=== PATIENT | female | born 1960 | race Caucasian/White ===

== ENCOUNTER 2020-01-17 13:04 | Emergency (ER) | payer MEDICARE, BC, SELFPAY ==
--- NOTE | ~2020-01-17 | CT_ITS ---
EXAMINATION: CTA chest PE protocol DATE: 01/17/2020 17:17 INDICATION: Chest pain. Shortness of breath. TECHNIQUE: Computed tomography (CT) pulmonary angiogram of the chest was performed with 100 mL Omnipa que-350 intravenous contrast. Additional 3D reconstructions utilizing coronal maximum intensity proje ction (MIP) were performed. Automated exposure control and iterative reconstruction technique were em ployed. The dose-length product was 730.22 mGy-cm. COMPARISON: 06/11/2019 FINDINGS: Good contrast opacification of the pulmonary arteries. There is mild streak artifact from dense contr ast in the superior vena cava and right atrium. Mild scattered respiratory motion artifact only mildl y decreases sensitivity in some of the smaller subsegmental pulmonary arteries. No pulmonary embolism . Chronic pleural-parenchymal scarring at the periphery of the left lower lobe and anterior left uppe r lobe/lingula. Additional new mild dependent atelectasis in the right lower lobe. No pneumonia, pulm onary edema, pleural effusion or pneumothorax. Heart size is normal. Atherosclerotic coronary artery calcifications changes of interval median sternotomy and coronary artery bypass grafting. Aortic valv e calcification. Thoracic aorta is normal in caliber with extensive atherosclerotic disease but no di ssection. Likely reactive mild anterior mediastinal lymphadenopathy. Retained epicardial pacemaker le ads. Infrarenal IVC filter. Mild thoracic spondylosis. Chronic appearing L3 central superior endplate compression fracture. IMPRESSION: 1. No pulmonary embolism. 2. Severe coronary artery disease with changes of interval median sternotomy and coronary artery bypa ss grafting. 3. Chronic atelectasis/scarring left lower lobe and at the junction of the left upper lobe and lingul a with new mild dependent atelectasis in the right lower lobe. 4. Mild likely reactive anterior mediastinal lymphadenopathy 5. IVC filter. Reviewed, dictated and finalized at location A. VERY STOCK CLERK IMPRESSION: 1. No pulmonary embolism. 2. Severe coronary artery disease with changes of interval median sternotomy an d coronary artery bypass grafting. 3. Chronic atelectasis/scarring left lower lobe and at the junction of the left upper lobe and lingula with new mild dependent atelectasis in the right lower lobe. 4. Mild likely reactive anterior mediastinal lymphadenopathy 5. IVC filter.
--- NOTE | ~2020-01-17 | XR_ITS ---
EXAMINATION: XR chest 2V DATE: 01/17/2020 14:19 INDICATION: Chest pain TECHNIQUE: AP and lateral views of the chest are obtained. COMPARISON: 11/19/2019 FINDINGS: The lungs are free of acute opacities. There is no pleural effusion or pneumothorax. There is chronic blunting of the left costophrenic angle. The heart size is normal. There are changes of pr ior cardiac surgery. There is mild thoracic spondylosis. IMPRESSION: 1. No acute cardiopulmonary abnormality. Reviewed, dictated and finalized at location A. RVISOR FACEPIECE LINE
[2020-01-17 13:24] VITALS: BP 111/54; PULSE 68; RESP 19; TEMP 36.6; O2SAT 100
--- NOTE | 2020-01-17 13:28 | ECG_ITS ---
Measurements Intervals [place] Rate: 64 P: 32 CT: 143 QRS: -3 QRSD: 68 T: 124 QT: 420 QTc: 434 Interpretive Statements SINUS RHYTHM LEFT VENTRICULAR HYPERTROPHY AND ST-T CHANGE BORDERLINE ST-T WAVE ABNORMALITY- INF/LAT LEADS BASELINE ARTIFACT- I, II, AVR BORDERLINE ECG Electronically Signed On 01-17-2020 13:51:25 STITCH CLEANER by Bebeto Cordoba D.O.
[2020-01-17 13:48] LABS: Basophils Absolute Auto 0.1 K/mm3 (0.0-0.1); Basophils Percent Auto 0.7 % (0.2-1.2); Eosinophils Absolute Auto 0.3 K/mm3 (0-0.3); Eosinophils Percent Auto 3.2 % (0-4.4); Hematocrit 40.7 % (37.0-47.0); Hemoglobin 13.3 g/dL (12.0-15.0); Immature Granulocyte Absolute 0.03 K/mm3 (0.00-0.031); Immature Granulocyte Percent A 0.3 % (0-0.5); Lymphocytes Absolute Auto 1.23 K/mm3 (0.9-3.2); Lymphocytes Percent Auto 12.4 % (18.3-44.2); Mean Corpuscular HGB Conc 32.7 g/dl (32-36); Mean Corpuscular Hemoglobin 29.6 pg (26-34); Mean Corpuscular Volume 90.4 fl (80-100); Mean Platelet Volume 9.9 fl (7.4-10.4); Monocytes Absolute Auto 0.7 K/mm3 (0.1-0.6); Monocytes Percent Auto 6.6 % (2.6-8.5); Neutrophils Absolute Auto 7.6 K/mm3 (1.3-6.7); Neutrophils Percent Auto 76.8 % (45.5-73.1); Platelet Count Result 357 k/mm3 (150-375); Red Cell Distribution Width 13.7 % (11.5-14.5); White Blood Count 9.9 K/mm3 (4.5-10.0)
[2020-01-17 13:52] LABS: INR 1.2; Prothrombin Time 14.5 Seconds (11.1-14.7)
[2020-01-17 13:53] LABS: Partial Thromboplastin Time 28.1 SECONDS (22.3-36.8)
[2020-01-17 13:54] LABS: Blood Urea Nitrogen 8 mg/dL (7-17); Carbon Dioxide 23 mmol/L (22-30); Chloride 98 mmol/L (98-107); Estimated Glomerular Filt Rate > 60; Glucose 189 mg/dL (65-105); Potassium 4.3 mmol/L (3.4-5.0); Sodium 135 mmol/L (137-145)
[2020-01-17 14:06] LABS: Troponin I < 0.012 ng/mL (0.000-0.034)
--- NOTE | 2020-01-17 14:36 | ED.GENADULT ---
HPI - General Adult General Chief complaint: Unspecified Stated complaint: Pain to R breast area Time Seen by Provider: 01/17/20 13:57 Source: patient Mode of arrival: EMS Limitations: no limitations History of Present Illness HPI narrative: Pt is a 59 y/o female who presents to the ED with c/o pain under her rt breast that started 3 days ago. Pt states that she is wheelchair bound and she thinks she pulled a muscle when she was being transported from her wheelchair to bed. Her pain is aggravated when she moves or takes a deep breath. Pt had a CABG done on August 2019 and she had an open wound on her chest and follows up at [facility]. She is supposed to see her surgeon for a skin graft next week. She denies ay new drainage or erythema to her wound site. Pt denies cough, rhinorrhea, sore throat, hemoptysis, rash, or swelling. Pt takes Oxycodone TID and it has not been helping her pain. She has a H/o a blood clot but denies being on any blood thinners. MD complaint: Pain under breast Onset (ago): day(s) (3) Location: chest and right Pain Consistency: constant Relieving factors: none Exacerbating factors: movement and other (deep breath) Associated symptoms: denies other symptoms Related Data Home Medications Medication Instructions Recorded Confirmed albuterol sulfate [ProAir HFA] 2 puff INHALATION QID 11/19/19 aspirin DAILY 11/19/19 atorvastatin DAILY 11/19/19 carvedilol BID 11/19/19 clopidogrel DAILY 11/19/19 furosemide DAILY 11/19/19 gabapentin TID 11/19/19 glipizide mg 11/19/19 melatonin 10 mg PO HS PRN 11/19/19 oxycodone-acetaminophen HS 11/19/19 paroxetine HCl mg PO 11/19/19 sacubitril-valsartan 1 tablet PO BID 11/19/19 Allergies Allergy/AdvReac Type Severity Reaction Status Date / Time adhesive tape Allergy Mild Rash Verified 11/19/19 11:05 amoxicillin AdvReac Intermediate Nausea and Verified 11/19/19 11:47 Vomiting cephalexin AdvReac Mild YEAST Verified 11/19/19 11:05 INFECTION codeine AdvReac Mild Nausea Verified 11/19/19 11:05 Review of Systems Review of Systems: All systems reviewed & are unremarkable except as noted in HPI and below ENT: Denies sore throat and Denies other (rhinorrhea, hemoptysis) Respiratory: Respiratory: Denies cough and Reports other (pain under rt breast) Musculoskeletal: Musculoskeletal: Denies other (swelling) Integumentary/Breasts: Skin/Breast: Denies rash PMFSH Past Medical History Medical History (Updated 01/17/20 @ 18:59 by Christopher Kaur MD) Acute kidney failure Arthritis Bronchitis CAD (coronary artery disease) CHF (congestive heart failure) COPD (chronic obstructive pulmonary disease) Diabetes mellitus Diverticulitis DVT (deep venous thrombosis) Hiatal hernia HTN (hypertension) Hx of lower limb amputation Kidney stones Myocardial infarction Pneumonia Pulmonary embolism TIA (transient ischemic attack) Surgical History Surgical History (Updated 01/17/20 @ 15:11 by Janae Ann) H/O section H/O heart artery stent H/O tubal ligation History of above-knee amputation of both lower extremities History of cardiac catheterization History of coronary artery bypass graft Hx of tonsillectomy Social History Social History Smoking status: Current every day smoker Gender identity (if verbalized by the patient): Female Exam Narrative: Exam Narrative: GENERAL: Well-appearing, well-nourished, and in no acute distress. HEAD: Normocephalic, atraumatic. ENT: Mucous membranes moist. CHEST: Clear to auscultation. No respiratory distress. Tender to palpation anterior chest wall right side beneath the breast. HEART: Regular rate and rhythm. Normal peripheral pulses. ABDOMEN: Soft, nontender, nondistended. EXTREMITIES: Normal range of motion. Bilateral lower extremity AKA. NEURO: Alert and oriented x3. PSYCH: Normal mood and affect. Course Vital Signs Vital signs
[2020-01-17 15:30] VITALS: BP 132/84; PULSE 64; RESP 16; O2SAT 97
[2020-01-17 16:17] LABS: D Dimer 1.57 ug/mL (<0.48)
[2020-01-17 16:32] VITALS: BP 123/52; PULSE 62; RESP 18; O2SAT 98
[2020-01-17 16:34] VITALS: PULSE 63
[2020-01-17 16:54] LABS: Troponin I < 0.012 ng/mL (0.000-0.034)
[2020-01-17] MEDS: ONDANSETRON INJ 4 MG/2 ML VIAL IV PUSH (17:44)
[2020-01-17 18:05] VITALS: BP 142/56; PULSE 71; RESP 16; O2SAT 97
[2020-01-17 19:23] VITALS: BP 128/84; PULSE 68; RESP 16; O2SAT 98
== END 2020-01-17 19:24 | disposition home or self-care (01) ==
PROVIDERS: Emergency Provider Emergency Medicine; PCP Family Medicine
DX: R07.89 Other chest pain (principal); I25.10 Atherosclerotic heart disease of native coronary artery without angina pectoris; I50.9 Heart failure, unspecified; J44.9 Chronic obstructive pulmonary disease, unspecified; E11.9 Type 2 diabetes mellitus without complications; Z86.718 Personal history of other venous thrombosis and embolism; Z87.442 Personal history of urinary calculi; M19.90 Unspecified osteoarthritis, unspecified site; Z86.711 Personal history of pulmonary embolism; Z86.73 Personal history of transient ischemic attack (TIA), and cerebral infarction without residual deficits; Z95.5 Presence of coronary angioplasty implant and graft; Z89.611 Acquired absence of right leg above knee; Z89.612 Acquired absence of left leg above knee; Z95.1 Presence of aortocoronary bypass graft; F17.200 Nicotine dependence, unspecified, uncomplicated; I11.0 Hypertensive heart disease with heart failure; Z79.82 Long term (current) use of aspirin; Z79.84 Long term (current) use of oral hypoglycemic drugs; R94.31 Abnormal electrocardiogram [ECG] [EKG]
CPT/HCPCS: 36415; 71046; 71275; 80048; 84484; 85025; 85380; 85610; 85730; 93005; 96374; 99284; J2405; Q9967

== ENCOUNTER 2021-05-15 08:51 | Emergency (ER) | payer MEDICARE, MEDICAID, SELFPAY ==
[2021-05-15] VITALS (12 sets, daily range): BP systolic 141–162; BP diastolic 70–92; PULSE 88–114; RESP 10–18; TEMP 36.7; O2SAT 95–97
--- NOTE | 2021-05-15 08:58 | ECG_ITS ---
Measurements Intervals [place] Rate: 107 P: 60 AR: 124 QRS: 46 QRSD: 73 T: 180 QT: 345 QTc: 461 Interpretive Statements SINUS TACHYCARDIA MINIMAL Q WAVES- INFERIOR LEADS BORDERLINE ST-T WAVE ABNORMALITY- DIFFUSE LEADS BASELINE ARTIFACT- II, III, AVF, V3-V6 ABNORMAL ECG Electronically Signed On 05-15-2021 9:20:51 CDT by Bebeto Cordoba D.O.
[2021-05-15 09:13] LABS: Basophils Absolute Auto 0.1 K/mm3 (0.0-0.1); Basophils Percent Auto 0.7 % (0.2-1.2); Eosinophils Absolute Auto 0.4 K/mm3 (0-0.3); Eosinophils Percent Auto 3.6 % (0-4.4); Hematocrit 43.6 % (37.0-47.0); Hemoglobin 14.3 g/dL (12.0-15.0); Immature Granulocyte Absolute 0.03 K/mm3 (0.00-0.031); Immature Granulocyte Percent A 0.3 % (0-0.5); Lymphocytes Absolute Auto 2.52 K/mm3 (0.9-3.2); Lymphocytes Percent Auto 24.2 % (18.3-44.2); Mean Corpuscular HGB Conc 32.8 g/dl (32-36); Mean Corpuscular Hemoglobin 30.6 pg (26-34); Mean Corpuscular Volume 93.4 fl (80-100); Monocytes Absolute Auto 0.7 K/mm3 (0.1-0.6); Monocytes Percent Auto 6.5 % (2.6-8.5); Neutrophils Absolute Auto 6.8 K/mm3 (1.3-6.7); Neutrophils Percent Auto 64.7 % (45.5-73.1); Platelet Count Result 247 k/mm3 (150-375); Red Blood Count 4.67 M/mm3 (4.2-5.4); Red Cell Distribution Width 14.2 % (11.5-14.5); White Blood Count 10.4 K/mm3 (4.5-10.0)
[2021-05-15 09:29] LABS: Alanine Aminotransferase 13 U/L (4-35); Albumin Level 4.1 g/dL (3.5-5.1); Alkaline Phosphatase 81 U/L (38-126); Anion Gap 7 mmol/L (8-16); Aspartate Amino Transferase 28 U/L (14-36); Bilirubin,Total 0.6 mg/dL (0.2-1.3); Blood Urea Nitrogen 10 mg/dL (7-17); Calcium 9.1 mg/dL (8.4-10.2); Carbon Dioxide 25 mmol/L (22-30); Chloride 106 mmol/L (98-107); Estimated Glomerular Filt Rate > 60; Glucose 270 mg/dL (65-105); Potassium 4.2 mmol/L (3.4-5.0); Sodium 138 mmol/L (137-145)
--- NOTE | 2021-05-15 09:57 | ED.GENADULT ---
HPI - General Adult General Chief complaint: Recheck/Abnormal Lab/Rx Stated complaint: Potassium is high/ PCP told to come in Time Seen by Provider: 05/15/21 09:57 Source: patient and family Mode of arrival: ambulatory Limitations: no limitations History of Present Illness HPI narrative: Patient is 60 years old white female had regular blood work-up yesterday for regular checkup. Patient is asymptomatic. Today had a phone call that her potassium level is critically high and need to go to the emergency room as soon as possible. Patient still asymptomatic. Patient is not on any potassium supplement Related Data Home Medications Medication Instructions Recorded Confirmed albuterol sulfate [ProAir HFA] 2 puff INHALATION QID 11/19/19 aspirin DAILY 11/19/19 atorvastatin DAILY 11/19/19 clopidogrel DAILY 11/19/19 glipizide mg 11/19/19 melatonin 10 mg PO HS PRN 11/19/19 oxycodone-acetaminophen HS 11/19/19 cholecalciferol (vitamin D3) 25 mcg PO DAILY 05/15/21 [Vitamin D3] gabapentin 900 mg PO BID 05/15/21 metformin 500 mg PO BID 05/15/21 oxycodone 05/15/21 sacubitril-valsartan [Entresto] 05/15/21 zolpidem 5 mg PO HS PRN 05/15/21 Allergies Allergy/AdvReac Type Severity Reaction Status Date / Time adhesive tape Allergy Mild Rash Verified 05/15/21 09:02 amoxicillin AdvReac Intermediate Nausea and Verified 05/15/21 09:02 Vomiting cephalexin AdvReac Mild YEAST Verified 05/15/21 09:02 INFECTION codeine AdvReac Mild Nausea Verified 05/15/21 09:02 Review of Systems Review of Systems: Narrative: CONSTITUTIONAL: Denies fever, chills, or sweats. EYES: Denies visual changes, redness, or discharge. ENT: Denies rhinorrhea, congestion, sore throat, or otalgia. CARDIOVASCULAR: Denies chest pain, palpitations, or edema. RESPIRATORY: Denies cough or dyspnea. GASTROINTESTINAL: Denies abdominal pain, nausea, vomiting, or diarrhea. GENITOURINARY: Denies dysuria or hematuria. SKIN: Denies rash or itching. MUSCULOSKELETAL: Denies back pain, joint pain, or myalgia. NEUROLOGIC: Denies headache, numbness, or weakness. PSYCHIATRIC: Denies anxiety or depression. [facility] Past Medical History Medical History Acute kidney failure Arthritis Bronchitis CAD (coronary artery disease) CHF (congestive heart failure) COPD (chronic obstructive pulmonary disease) Diabetes mellitus Diverticulitis DVT (deep venous thrombosis) Hiatal hernia HTN (hypertension) Hx of lower limb amputation Kidney stones Myocardial infarction Pneumonia Pulmonary embolism TIA (transient ischemic attack) Surgical History Surgical History H/O section H/O heart artery stent H/O tubal ligation History of above-knee amputation of both lower extremities History of cardiac catheterization History of coronary artery bypass graft Hx of tonsillectomy Social History Social History Smoking status: Current every day smoker Gender identity (if verbalized by the patient): Female Exam Narrative: Exam Narrative: General appearance: Well-developed, well-nourished Chest and respiratory: Airway patent, no respiratory distress, no accessory muscle use Heart: Regular rate/rhythm Abdomen: Soft, nontender, no organomegaly, quiet bowel sounds Vascular: Normal peripheral pulses, normal capillary refill. Neurologic: Alert and oriented ?3, Course Course Emergency Course: Stable Vital Signs Vital signs: Vital Signs Temperature 36.7 C 05/15/21 08:57 Pulse Rate 112 H 05/15/21 08:57 Respiratory Rate 16 05/15
== END 2021-05-15 10:41 | disposition home or self-care (01) ==
PROVIDERS: Emergency Provider Emergency Medicine; PCP Family Medicine
DX: E87.5 Hyperkalemia (principal); I25.10 Atherosclerotic heart disease of native coronary artery without angina pectoris; I11.0 Hypertensive heart disease with heart failure; I50.9 Heart failure, unspecified; E11.9 Type 2 diabetes mellitus without complications; J44.9 Chronic obstructive pulmonary disease, unspecified; I25.2 Old myocardial infarction; F17.200 Nicotine dependence, unspecified, uncomplicated; Z79.82 Long term (current) use of aspirin; Z79.891 Long term (current) use of opiate analgesic; Z86.718 Personal history of other venous thrombosis and embolism
CPT/HCPCS: 36415; 80053; 85025; 93005; 99283

== ENCOUNTER 2023-01-24 08:50 | Emergency (ER) | payer MEDICARE, MEDICAID, SELFPAY ==
[2023-01-24] VITALS (14 sets, daily range): BP systolic 116–140; BP diastolic 57–64; PULSE 68; RESP 18; TEMP 36.7; O2SAT 96–100
--- NOTE | ~2023-01-24 | XR_ITS ---
EXAMINATION: XR femur RT min 2V DATE: 01/24/2023 10:00 INDICATION: Right thigh wound. TECHNIQUE: 2 views of the right femur were obtained. COMPARISON: None. FINDINGS: There are changes of above knee amputation. The bone margin of the stump is normal. Osteope joseph is noted. There is mild right hip osteoarthritis. There is a vascular stent in the thigh. IMPRESSION: 1. No evidence of osteomyelitis. Reviewed, dictated and finalized at location D. OR PENCIL ASSEMBLY MACHINE OPERATOR
--- NOTE | ~2023-01-24 | CT_ITS ---
EXAMINATION: CTA pelvis DATE: 01/24/2023 14:47 INDICATION: Right thigh wound. TECHNIQUE: Computed tomographic angiography (CTA) of the pelvis was performed with 100 mL Omnipaque-3 50 intravenous contrast. Automated exposure control and iterative reconstruction technique were emplo yed. The dose-length product was 220.48 mGy-cm. Maximum intensity projection 3D-reconstructions of th e aorta and other arteries were constructed by the technologist on a separate workstation. COMPARISON: CT abdomen and pelvis 10/20/2018 FINDINGS: There are no dilated loops of bowel. There are no pathologically enlarged lymph nodes. Ther e is no free intraperitoneal fluid. There are changes of bilateral above-knee amputations. There is e xposed bone at the right femoral stump. There is diffuse osteopenia. There is mild lumbar spondylosis . There is mild osteoarthritis of the hips. There is sclerosis of the superior femoral heads, likely osteonecrosis. There is mild stenosis of abdominal aorta and right common iliac artery. There is mode rate stenosis of right internal iliac artery. There is mild stenosis of right external iliac artery. There is total occlusion of proximal right superficial femoral artery with reconstitution and severe stenosis. There is an occluded stent in right superficial femoral artery. There is mild stenosis of r ight profunda femoris. There is mild stenosis of left common iliac artery and moderate stenosis of le ft internal iliac artery. There is mild stenosis of left external iliac artery and moderate stenosis of left common femoral artery. There is severe stenosis of proximal left superficial femoral artery. There is total occlusion of 2 stents in left superficial femoral artery. There is mild stenosis of le ft profunda femoris. IMPRESSION: 1. Bilateral above-knee amputations with exposed bone at the right femoral stump. No bone erosions to suggest osteoarthritis. 2. Arterial occlusive disease. Reviewed, dictated and finalized at location A. KER DRIVER IMPRESSION: 1. Bilateral above-knee amputations with exposed bone at the right femoral stum p. No bone erosions to suggest osteoarthritis. 2. Arterial occlusive disease.
--- NOTE | 2023-01-24 09:36 | ED.WOUNDLAC ---
HPI - Wound/Laceration General Chief Complaint: Wound/Laceration Stated Complaint: leg infection Time Seen by Provider: 01/24/23 09:12 Source: patient and RN notes reviewed Mode of arrival: EMS Limitations: no limitations History of Present Illness HPI narrative: This is a 62-year-old female that presents to the emergency department for an open sore to her right leg. Reports bilateral krggm-fwb-wzez amputations. Her right AKA a the end of the stump has been painful over the last several months. Just yesterday a wound to the end of the stump opened up. Reports a small open wound with some drainage which prompted her to be seen. Her amputations were done at [facility] by Dr. Juanito Merino. Denies fevers or redness. Related Data Home Medications Medication Instructions Recorded Confirmed albuterol sulfate 90 mcg/actuation 2 puff inhalation QID 11/19/19 aerosol inhaler (ProAir HFA) aspirin 81 mg chewable tablet DAILY 11/19/19 atorvastatin 20 mg tablet DAILY 11/19/19 clopidogrel 75 mg tablet DAILY 11/19/19 glipizide 5 mg tablet mg 11/19/19 melatonin 10 mg capsule 10 mg PO HS PRN Insomnia 11/19/19 oxycodone-acetaminophen 5 mg-325 HS 11/19/19 mg tablet cholecalciferol (vitamin D3) 25 25 mcg PO DAILY 05/15/21 mcg (1,000 unit) chewable tablet (Vitamin D3) gabapentin 300 mg tablet 900 mg PO BID 05/15/21 metformin 500 mg tablet 500 mg PO BID 05/15/21 oxycodone 10 mg tablet 05/15/21 sacubitril 24 mg-valsartan 26 mg 05/15/21 tablet (Entresto) zolpidem 5 mg tablet 5 mg PO HS PRN Sedation 05/15/21 Allergies Allergy/AdvReac Type Severity Reaction Status Date / Time adhesive tape Allergy Mild Rash Verified 05/15/21 09:02 amoxicillin AdvReac Intermediate Nausea and Verified 05/15/21 09:02 Vomiting cephalexin AdvReac Mild YEAST Verified 05/15/21 09:02 INFECTION codeine AdvReac Mild Nausea Verified 05/15/21 09:02 Review of Systems Review of Systems: CONSTITUTIONAL: Denies fever SKIN: Denies redness or warmth NEUROLOGIC: Denies numbness All systems reviewed & are unremarkable except as noted in HPI and below PMFSH Past Medical History Medical History Acute kidney failure Arthritis Bronchitis CAD (coronary artery disease) CHF (congestive heart failure) COPD (chronic obstructive pulmonary disease) Diabetes mellitus Diverticulitis DVT (deep venous thrombosis) Hiatal hernia HTN (hypertension) Hx of lower limb amputation Kidney stones Myocardial infarction Pneumonia Pulmonary embolism TIA (transient ischemic attack) Surgical History Surgical History H/O section H/O heart artery stent H/O tubal ligation History of above-knee amputation of both lower extremities History of cardiac catheterization History of coronary artery bypass graft Hx of tonsillectomy Social History Social History Smoking status: Current every day smoker Gender identity (if verbalized by the patient): Female Exam Narrative: GENERAL: Well-appearing, well-nourished, and in no acute distress. HEAD: Normocephalic, atraumatic. EYES: EOMI. CHEST: Clear to auscultation. No respiratory distress. No wheezes rales or rhonchi HEART: Regular rate and rhythm. No murmur heard. Normal peripheral pulses. ABDOMEN: Soft, nontender, nondistended, normal active bowel sounds. EXTREMITIES: Bilateral AKA. Right stump with 1.5cm circular open area with mild surrounding redness. No overt erythema or warmth. Mild serous drainage. No lymphangitic streaking. No fluctuance SKIN: Warm, dry, no rash. NEURO: No focal deficits. Alert and oriented x3. PSYCH: Normal mood and affect Course Course Emergency Course: Patient updated on work-up and agrees with plan of care Consultations Consultation #1: I spoke with BROOKLYNN at Dr. White's office, vascular surgery at [facility] who is on
[2023-01-24 09:50] LABS: Basophils Absolute Auto 0.1 K/mm3 (0.0-0.1); Basophils Percent Auto 0.7 % (0.2-1.2); Eosinophils Absolute Auto 0.3 K/mm3 (0-0.3); Eosinophils Percent Auto 2.5 % (0-4.4); Hemoglobin 14.1 g/dL (12.0-15.0); Immature Granulocyte Absolute 0.04 K/mm3 (0.00-0.031); Immature Granulocyte Percent A 0.4 % (0-0.5); Lymphocytes Percent Auto 27.7 % (18.3-44.2); Mean Corpuscular HGB Conc 32.8 g/dl (32-36); Mean Corpuscular Hemoglobin 31.1 pg (26-34); Mean Corpuscular Volume 94.9 fl (80-100); Monocytes Absolute Auto 0.7 K/mm3 (0.1-0.6); Neutrophils Percent Auto 62.7 % (45.5-73.1); Platelet Count Result 278 k/mm3 (150-375); Red Blood Count 4.53 M/mm3 (4.2-5.4); Red Cell Distribution Width 14.2 % (11.5-14.5); White Blood Count 11.2 K/mm3 (4.5-10.0)
[2023-01-24] MEDS: oxyCODONE HCL (*CRX) 5 MG TAB IR PO (10:09)
[2023-01-24 10:22] LABS: Anion Gap 4 mmol/L (8-16); Blood Urea Nitrogen 15 mg/dL (7-17); CRP 0.5 mg/dL (<1.0); Calcium 8.5 mg/dL (8.4-10.2); Carbon Dioxide 28 mmol/L (22-30); Chloride 107 mmol/L (98-107); Estimated Glomerular Filt Rate > 60; Glucose 94 mg/dL (65-110); Potassium 4.4 mmol/L (3.4-5.0); Sodium 139 mmol/L (137-145)
[2023-01-24 10:23] LABS: Erythrocyte Sedimentation Rate 23 mm/hr (0-20)
[2023-01-24 13:49] LABS: Glucose Point of Care 205 mg/dl (65-105)
[2023-01-24] MEDS: CLINDAMYCIN HCL 150 MG CAP 300 MG PO ×2 (13:50→19:20)
--- NOTE | 2023-01-24 17:40 | PC.NURSE ---
[facility] called to do return to pt private residence at 1608 when they arrived in ER @ 1730 [facility] stated they will have enough time to do this private residence. @ 1734 [facility] notified for Pt to be put on BLS truck list.
--- NOTE | 2023-01-24 18:30 | PC.NURSE ---
@ 1827 [facility] called for return trip private residence ETA [id number]
== END 2023-01-24 19:24 | disposition home or self-care (01) ==
PROVIDERS: Emergency Provider Physician Assistant; PCP Family Medicine
DX: S81.801A Unspecified open wound, right lower leg, initial encounter (principal); T87.89 Other complications of amputation stump; Y83.5 Amputation of limb(s) as the cause of abnormal reaction of the patient, or of later complication, without mention of misadventure at the time of the procedure; I65.23 Occlusion and stenosis of bilateral carotid arteries; E11.9 Type 2 diabetes mellitus without complications; I25.10 Atherosclerotic heart disease of native coronary artery without angina pectoris; I11.0 Hypertensive heart disease with heart failure; I50.9 Heart failure, unspecified; I25.2 Old myocardial infarction; Z86.73 Personal history of transient ischemic attack (TIA), and cerebral infarction without residual deficits; Z86.718 Personal history of other venous thrombosis and embolism; Z86.711 Personal history of pulmonary embolism; Z95.5 Presence of coronary angioplasty implant and graft; Z95.1 Presence of aortocoronary bypass graft; Z89.612 Acquired absence of left leg above knee; Z89.611 Acquired absence of right leg above knee; F17.200 Nicotine dependence, unspecified, uncomplicated; Z79.51 Long term (current) use of inhaled steroids; Z79.02 Long term (current) use of antithrombotics/antiplatelets; Z79.84 Long term (current) use of oral hypoglycemic drugs; Z79.82 Long term (current) use of aspirin; Z79.891 Long term (current) use of opiate analgesic
CPT/HCPCS: 36415; 72191; 73552; 80048; 82948; 85025; 85652; 86140; 87070; 87147; 87181; 87186; 87205; 99284; A9270

== ENCOUNTER 2023-04-06 17:55 | Emergency (ER) | payer MEDICARE, MEDICAID, SELFPAY ==
--- NOTE | ~2023-04-06 | XR_ITS ---
EXAMINATION: XR femur RT min 2V DATE: 04/06/2023 18:52 INDICATION: Pain at the proximal right femur. TECHNIQUE: AP and lateral views of the right femur were obtained. COMPARISON: CT dated 01/24/2023 FINDINGS: Again seen is a right beago-ksq-cget amputation. There is also been an xjeth-qhq-xhgu amputation at t he left leg only a small portion of which is visualized on the frontal image. Osteopenia with smooth osteotomy margin at the remaining distal right femur. On the lateral projection the anterior osteotom y margin projects within 3 mm of the surface of the overlying soft tissue itself covered with a likel y bandage. Alignment is normal. No fracture. Increased sclerosis at the right femoral head necrosis. Right hip joint space remains relatively preserved. Atherosclerotic calcific lesion along the right f emoral artery with stenting seen distally. IMPRESSION: 1. Bilateral tsoge-afh-axgz amputations. There appears be only a few millimeter of soft tissue covera ge over the anterior osteotomy margin which remains smooth with no evident osteolysis. 2. Likely osteonecrosis at the right femoral head. Reviewed, dictated and finalized at location A. IMPRESSION: 1. Bilateral zvluh-wpt-[id number] amputations. There appears be only a few millimeter of soft tissue coverage over the anterior osteotomy margin which remains dyllan h with no evident osteolysis. 2. Likely osteonecrosis at the right femoral head.
--- NOTE | 2023-04-06 18:31 | ED.EXTPRO ---
HPI - Extremity Problem General Chief complaint: Extremity Problem,Nontraumatic <Joseluis Akhtar III, DO - Last Filed: 04/06/23 18:37> Stated complaint: Right stump infection <Joseluis Akhtar III, DO - Last Filed: 04/06/23 18:37> Time Seen by Provider: 04/06/23 18:25 <Joseluis Akhtar III, DO - Last Filed: 04/06/23 18:37> History of Present Illness HPI Narrative: Pt has b/l aka and history of staph infection in right stump. Pt says she was on antibiotics recently for skin infection in right stump and it improved. Pt finished the antibiotics and was doing well until about 4 days ago and she started having pain in her femur radiating up into hip. Pt has not been febrile. Pt called PCP and advised to go to ER. <Joseluis Akhtar III, DO - Last Filed: 04/06/23 18:37> Related Data Home medications: Home Medications Medication Instructions Recorded Confirmed albuterol sulfate 90 mcg/actuation 2 puff inhalation QID 11/19/19 aerosol inhaler (ProAir HFA) aspirin 81 mg chewable tablet DAILY 11/19/19 atorvastatin 20 mg tablet DAILY 11/19/19 clopidogrel 75 mg tablet DAILY 11/19/19 glipizide 5 mg tablet mg 11/19/19 melatonin 10 mg capsule 10 mg PO HS PRN Insomnia 11/19/19 oxycodone-acetaminophen 5 mg-325 HS 11/19/19 mg tablet cholecalciferol (vitamin D3) 25 25 mcg PO DAILY 05/15/21 mcg (1,000 unit) chewable tablet (Vitamin D3) gabapentin 300 mg tablet 900 mg PO BID 05/15/21 metformin 500 mg tablet 500 mg PO BID 05/15/21 oxycodone 10 mg tablet 05/15/21 sacubitril 24 mg-valsartan 26 mg 05/15/21 tablet (Entresto) zolpidem 5 mg tablet 5 mg PO HS PRN Sedation 05/15/21 <Joseluis Akhtar III, DO - Last Filed: 04/06/23 18:37> Allergies/Adverse reactions: Allergies Allergy/AdvReac Type Severity Reaction Status Date / Time adhesive tape Allergy Mild Rash Verified 04/06/23 18:06 amoxicillin AdvReac Intermediate Nausea and Verified 04/06/23 18:06 Vomiting cephalexin AdvReac Mild YEAST Verified 04/06/23 18:06 INFECTION codeine AdvReac Mild Nausea Verified 04/06/23 18:06 <Joseluiscruz Ford Akhtar III, DO - Last Filed: 04/06/23 18:37> Review of Systems Review of Systems: All systems reviewed & are unremarkable except as noted in HPI and below <Joseluis Logan Akhtar III, DO - Last Filed: 04/06/23 18:37> PMFSH Past Medical History Medical History: Medical History Acute kidney failure Arthritis Bronchitis CAD (coronary artery disease) CHF (congestive heart failure) COPD (chronic obstructive pulmonary disease) Diabetes mellitus Diverticulitis DVT (deep venous thrombosis) Hiatal hernia HTN (hypertension) Hx of lower limb amputation Kidney stones Myocardial infarction Pneumonia Pulmonary embolism TIA (transient ischemic attack) <Joseluis Akhtar III, DO - Last Filed: 04/06/23 18:37> Surgical History Surgical History: Surgical History H/O section H/O heart artery stent H/O tubal ligation History of above-knee amputation of both lower extremities History of cardiac catheterization History of coronary artery bypass graft Hx of tonsillectomy <Joseluis Akhtar III, DO - Last Filed: 04/06/23 18:37> Social History Social History: Social History Smoking status: Current every day smoker Gender identity (if verbalized by the patient): Female <Joseluiscruz Ford Akhtar III, DO - Last Filed: 04/06/23 18:37> Exam Const: General: healthy appearing <Joseluis Logan Akhtar III, DO - Last Filed: 04/06/23 18:37> Nutritional Appearance: well nourished <Joseluis Logan Akhtar III, DO - Last Filed: 04/06/23 18:37> Orientation/consciousness: patient oriented x3 <Joseluis Logan Akhtar III, DO - Last Filed: 04/06/23 18:37> Limitations: no limitations <Joseluis Logan Akhtar III, DO - Last Filed: 04/06/23 18:37>
[2023-04-06 19:41] LABS: Basophils Absolute Auto 0.1 K/mm3 (0.0-0.1); Basophils Percent Auto 0.8 % (0.2-1.2); Eosinophils Absolute Auto 0.4 K/mm3 (0-0.3); Eosinophils Percent Auto 4.5 % (0-4.4); Hematocrit 42.4 % (37.0-47.0); Immature Granulocyte Absolute 0.02 K/mm3 (0.00-0.031); Immature Granulocyte Percent A 0.2 % (0-0.5); Lymphocytes Absolute Auto 2.65 K/mm3 (0.9-3.2); Lymphocytes Percent Auto 31.5 % (18.3-44.2); Mean Corpuscular Hemoglobin 31.7 pg (26-34); Mean Corpuscular Volume 96.1 fl (80-100); Mean Platelet Volume 10.6 fl (7.4-10.4); Monocytes Absolute Auto 0.5 K/mm3 (0.1-0.6); Monocytes Percent Auto 6.4 % (2.6-8.5); Neutrophils Absolute Auto 4.8 K/mm3 (1.3-6.7); Neutrophils Percent Auto 56.6 % (45.5-73.1); Platelet Count Result 224 k/mm3 (150-375); Red Blood Count 4.41 M/mm3 (4.2-5.4); Red Cell Distribution Width 13.8 % (11.5-14.5); White Blood Count 8.4 K/mm3 (4.5-10.0)
[2023-04-06 19:51] LABS: Prothrombin Time 13.8 Seconds (11.1-14.7)
[2023-04-06 19:52] LABS: Partial Thromboplastin Time 24.5 SECONDS (22.3-36.8)
[2023-04-06 19:54] LABS: Lactic Acid Reflex 1.1 mmol/L (0.7-2.0)
[2023-04-06 19:55] LABS: Alanine Aminotransferase 19 U/L (6-35); Albumin Level 4.1 g/dL (3.5-5.1); Alkaline Phosphatase 69 U/L (38-126); Anion Gap 7 mmol/L (8-16); Aspartate Amino Transferase 23 U/L (14-36); Bilirubin,Total 0.4 mg/dL (0.2-1.3); Blood Urea Nitrogen 18 mg/dL (7-17); CRP 0.7 mg/dL (<1.0); Calcium 8.9 mg/dL (8.4-10.2); Carbon Dioxide 27 mmol/L (22-30); Chloride 103 mmol/L (98-107); Estimated Glomerular Filt Rate > 60; Glucose 114 mg/dL (65-110); Sodium 137 mmol/L (137-145)
== END 2023-04-07 00:27 | disposition home or self-care (01) ==
PROVIDERS: Emergency Provider Emergency Medicine; PCP Family Medicine
DX: M25.551 Pain in right hip (principal); I25.10 Atherosclerotic heart disease of native coronary artery without angina pectoris; I11.0 Hypertensive heart disease with heart failure; I50.9 Heart failure, unspecified; J44.9 Chronic obstructive pulmonary disease, unspecified; E11.9 Type 2 diabetes mellitus without complications; I25.2 Old myocardial infarction; F17.200 Nicotine dependence, unspecified, uncomplicated; Z86.73 Personal history of transient ischemic attack (TIA), and cerebral infarction without residual deficits; Z89.611 Acquired absence of right leg above knee; Z89.612 Acquired absence of left leg above knee
CPT/HCPCS: 36415; 73552; 80053; 83605; 85025; 85610; 85730; 86140; 87040; 99283

== ENCOUNTER 2024-02-26 14:11 | Inpatient (IN) | payer MEDICARE, MEDICAID, SELFPAY ==
[2024-02-26] VITALS (47 sets, daily range): BP systolic 88–180; BP diastolic 50–84; PULSE 119–148; RESP 15–44; TEMP 36.5–38.5; O2SAT 83–100; BMI 14.6
--- NOTE | ~2024-02-26 | CT_ITS ---
EXAMINATION: CT brain wo con DATE: 02/29/2024 09:26 INDICATION: Altered mental status. TECHNIQUE: Computed tomography (CT) of the head was performed without intravenous contrast. The mA wa s adjusted according to patient size. Iterative reconstruction technique was employed. The dose-lengt h product was 681.00 mGy-cm. COMPARISON: Head CT 02/26/2024 FINDINGS: There are old infarcts in the cerebellum bilaterally. There is an old infarct in the right occipital lobe. There are old infarcts involving the bilateral basal ganglia and thalami. There is ol d infarct in the milagro. There are scattered areas of low attenuation in the cerebral white matter. The re is no intracranial hemorrhage, acute infarction, or abnormal intracranial mass lesion. There is ex vacuo dilatation of body of left lateral ventricle. The orbits are normal. There is mild mucosal thi ckening in sphenoid sinus. There are bilateral mastoid effusions. Endotracheal and endogastric tubes are noted. IMPRESSION: 1. Old infarcts in the brain. 2. Extensive nonspecific cerebral white matter disease, which likely represents chronic small vessel ischemic disease. Reviewed, dictated and finalized at location A.
--- NOTE | ~2024-02-26 | XR_ITS ---
EXAMINATION: XR chest 1V portable DATE: 03/03/2024 05:14 INDICATION: Respiratory failure TECHNIQUE: frontal view of the chest was obtained. COMPARISON: Chest radiograph dated 03/02/2024 FINDINGS: Endotracheal tube tip 2.9 cm above the pedro. Nasogastric tube and Dobbhoff type enteric feeding tub e both extend into the stomach are collimated beyond the inferior margin of the field of imaging. Rig ht internal jugular central venous catheter with distal tip at the superior cavoatrial junction. Epic ardial pacemaker leads project over the right and inferior sides of the heart. There has been some improvement in hazy opacities at the bilateral lung bases likely due at least in part to small bilateral pleural effusions. Additional linear bands of discoid atelectasis/scarring at the left lower lung zone. No pneumothorax. The cardiomediastinal silhouette is normal. Ostial marker s and mediastinal surgical clips suggesting prior coronary artery bypass grafting. IMPRESSION: 1. Slight improvement in small bilateral pleural effusions with associated bibasilar atelectasis, mil d pulmonary edema and/or pneumonia. Reviewed, dictated and finalized at location A. IMPRESSION: 1. Slight improvement in small bilateral pleural effusions with associated biba silar atelectasis, mild pulmonary edema and/or pneumonia.
--- NOTE | ~2024-02-26 | CT_ITS ---
EXAMINATION: CT abdomen pelvis w con DATE: 02/26/2024 19:57 INDICATION: sacral decub ulcer TECHNIQUE: Computed tomography (CT) of the abdomen and pelvis was performed with 100 mL Omnipaque-350 intravenous contrast. Automated exposure control and iterative reconstruction technique were employe d. The dose-length product was 226.48 mGy-cm. COMPARISON: 10/20/2018, report only. FINDINGS: Lower thorax: Mitral and coronary artery calcifications. Orogastric tube terminating in the stomach. Left basilar atelectasis. Liver: Normal. Biliary/Gallbladder: Cholelithiasis. No bile duct dilation. Pancreas: Moderate atrophy. Spleen: Small wedge-shaped peripheral hypodensities likely representing infarct. Adrenals:No mass. Kidneys: No suspicious mass, obstructing stone, or hydronephrosis. Excreted contrast in the collectin g systems. GI tract: Moderate distal esophageal and gastric wall edema. No small or large bowel dilation. Normal appendix. Mesentery/Peritoneum: No ascites, mass, or free air. Mild mesenteric edema. Presacral edema. Retroperitoneum: No mass. Atherosclerotic abdominal aortic and/or arterial calcifications. IVC filter . Pelvis: Contrast filled urinary bladder. Zepeda catheter in place. Normal uterus and bilateral ovaries . Soft Tissues: Moderate body wall edema. Deep sacral ulcer, extending to bone no abscess. Bones: Transverse fracture of S5, with anterior displacement of the distal aspect fragment and coccy x. Osseous erosion along the posterior sacrum and portions of the displaced sacral/coccygeal fragment . IMPRESSION: Moderate esophagitis/gastritis. Small splenic infarct. Contrast-filled bladder with a Zepeda catheter, correlate with catheter function. Transverse distal sacral fracture. Deep sacral ulcer with exposed bone and underlying sacral osteomyelitis. Mild mesenteric and moderate body wall edema. Reviewed, dictated and finalized at location K. IMPRESSION: Moderate esophagitis/gastritis. Small splenic infarct. Contrast-filled bladder with a Zepeda catheter, correlate with catheter function . Transverse distal sacral fracture. Deep sacral ulcer with exposed bone and underlying sacral osteomyelitis. Mild mesenteric and moderate body wall edema.
--- NOTE | ~2024-02-26 | XR_ITS ---
EXAMINATION: XR chest 1V portable Exam Date/Time: 02/26/2024 18:02 CDT HISTORY: central line Comparison: Same date at 5:09 PM. FINDINGS/IMPRESSION: New right IJ central line terminating in the distal SVC, in good position. Stabl e endotracheal tube, in good position. Subdiaphragmatic NG tube. No new acute cardiopulmonary finding . Reviewed, dictated and finalized at location K.
--- NOTE | ~2024-02-26 | XR_ITS ---
EXAMINATION: XR chest ET placement Exam Date/Time: 02/26/2024 17:03 CDT HISTORY: intubation Comparison: CTPA, same date. RESULT: Lines, tubes, and devices: Subdiaphragmatic NG tube. Midline and mediastinal surgical clips. Ostial markers. Abandoned pacing wires. Endotracheal tube terminates 3.8 cm above the pedro. Lungs and pleura: Lingular and left lower lobe scar. Cardiomediastinal silhouette: Stable. Other: No acute osseous or upper abdominal finding. IMPRESSION: Endotracheal tube, in good position. Reviewed, dictated and finalized at location K.
--- NOTE | ~2024-02-26 | XR_ITS ---
EXAMINATION: XR chest 1V portable DATE: 03/02/2024 05:41 INDICATION: Intubated. TECHNIQUE: A single frontal view of the chest was obtained. COMPARISON: Chest single view 03/01/2024, chest CT 02/29/2024 FINDINGS: The patient is rotated to her right. There is a diffuse interstitial pattern. There are mil d airspace opacities in the lower lung zones. There are small bilateral pleural effusions. No pneumot horax. The heart size is normal. The endotracheal tube tip is 4.1 cm above the pedro. The nasogastri c tube tip is beyond the inferior margin of the radiograph, but at least to the stomach. A right inte rnal jugular central venous catheter is seen with tip in the proximal right atrium IMPRESSION: 1. Stable mild diffuse lung disease, consistent with pulmonary edema versus pneumonia. 2. Stable small pleural effusions. Reviewed, dictated and finalized at location A. IMPRESSION: 1. Stable mild diffuse lung disease, consistent with pulmonary edema versus pne umonia. 2. Stable small pleural effusions.
--- NOTE | ~2024-02-26 | XR_ITS ---
EXAMINATION: XR chest 1V portable DATE: 02/27/2024 09:22 INDICATION: Respiratory failure. TECHNIQUE: A single frontal view of the chest was obtained. COMPARISON: Chest single view 02/27/2024 at 5:12 AM, chest CT 02/26/2024 FINDINGS: There is volume loss of left hemithorax. There are airspace opacities in left lower lobe an d lingula. There is chronic blunting of left lateral costophrenic angle. No pleural effusion or pneum othorax. The heart size is normal. Median sternotomy wires and mediastinal surgical clips are seen, l ikely from prior coronary artery bypass grafting. Retained epicardial pacer wires are noted. A right internal jugular central venous catheter is seen with tip at the superior cavoatrial junction. The en dotracheal tube tip is 4.5 cm above the pedro. The nasogastric tube tip is in the stomach. IMPRESSION: 1. Volume loss of left hemithorax with airspace opacities in left lower lobe and lingula, likely atel ectasis. Reviewed, dictated and finalized at location A. IMPRESSION: 1. Volume loss of left hemithorax with airspace opacities in left lower lobe an d lingula, likely atelectasis.
--- NOTE | ~2024-02-26 | XR_ITS ---
Portable chest x-ray Comparison: 02/29/2024 Clinical History: Tube placement Findings: Endotracheal tube, NG tube, and right-sided line are in place. NG side port is at the dist al esophagus. There is discoid atelectasis or scarring left midlung. Probable minimal left pleural ef fusion. Right lung clear. Cardiomediastinal silhouette is stable. Bones and soft tissues are unremar kable. Impression: NG tube side-port at the distal esophagus. Further advancement into the stomach advised. Other support tubes are in satisfactory position. Discoid atelectasis or scarring left midlung. Minimal left pleural effusion. Reviewed, dictated and finalized at location . Impression: NG tube side-port at the distal esophagus. Further advancement into the stomach advised. Other support tubes are in satisfactory position. Discoid atelectasis or scarring left midlung. Minimal left pleural effusion.
--- NOTE | ~2024-02-26 | XR_ITS ---
EXAM: XR abdomen gastric tube insert DATE: 02/26/2024 17:13 HISTORY: OG PLACEMENT . COMPARISON: CTPA, same date. FINDINGS: Lingular and left lower lobe scarring. Midline and mediastinal surgical clips. Abandoned e picardial pacing wires. IVC filter. NG tube, tip and side port project over the expected location of the stomach. Normal bowel gas pattern. No organomegaly. No abnormal abdominal calcification. Degenera tive change in the spine. IMPRESSION: NG tube, in good position. Reviewed, dictated and finalized at location K. IMPRESSION: NG tube, in good position.
--- NOTE | ~2024-02-26 | XR_ITS ---
Portable chest x-ray Comparison: 02/27/2024 Clinical History: Intubated Findings: Endotracheal tube, NG tube, and right IJ line are in place. Questionable minimal layering left pleural effusion. Right lung clear. Cardiomediastinal silhouette is stable. Bones and soft tiss ues are unremarkable. Impression: Support tubes, as above. Questionable minimal layering left pleural effusion. Reviewed, dictated and finalized at location . Impression: Support tubes, as above. Questionable minimal layering left pleural effusion.
--- NOTE | ~2024-02-26 | XR_ITS ---
EXAMINATION: XR fl Dobhoff insert/rad w img DATE: 03/02/2024 11:12 INDICATION: Gastroparesis. TECHNIQUE: I placed a nasoenteric tube under fluoroscopic guidance. The number of images was 1. The f luoroscopy exposure time was 1.1 minutes. COMPARISON: Chest single view 03/02/2024 FINDINGS: The nasoenteric tube tip is in the distal stomach. IMPRESSION: 1. Fluoroscopy guided nasoenteric tube placement with tip in the distal stomach. Reviewed, dictated and finalized at location A. IMPRESSION: 1. Fluoroscopy guided nasoenteric tube placement with tip in the distal stomach .
--- NOTE | ~2024-02-26 | CT_ITS ---
EXAMINATION: CT chest abdomen pelvis wo con DATE: 02/29/2024 09:26 INDICATION: Anemia. Sepsis. TECHNIQUE: Computed tomography (CT) of the chest, abdomen, and pelvis was performed without intraveno us contrast. Automated exposure control and iterative reconstruction technique were employed. The dos e-length product was 532.01 mGy-cm. COMPARISON: CT abdomen and pelvis 02/26/2024 FINDINGS: CHEST CT: There is smooth septal thickening in the lungs, consistent mild pulmonary edema. There is mild depend ent atelectasis in right lung. There are tree-in-bud opacities and centrilobular nodules and airspace opacities in left upper lobe and left lower lobe, consistent with pneumonia. There are small pleural effusions. The endotracheal tube tip is 4.8 cm above the pedro. The heart size is normal. There are coronary artery calcifications. There are changes of coronary artery bypass grafting. No pericardial effusion. There is calcified atherosclerosis of the aorta and many of the other arteries. There is a chronic compression fracture of T7. There is mild thoracic spondylosis. ABDOMEN/PELVIS CT: The liver and spleen are normal. There is contrast in the gallbladder, which is normal in size. There is a filter in the inferior vena cava. The pancreas and adrenal glands are normal. There is cartilag e thinning of the kidneys. There is are persistent contrast nephrograms, collecting system with decre ased kidney function. The bladder is decompressed by a Zepeda catheter. There is diverticulosis of the colon without evidence of diverticulitis. There are no dilated loops of bowel. The appendix is baldemar l. The nasogastric tube tip is in the stomach. There are no pathologically enlarged lymph nodes. Ther e is a small volume of ascites. There is edema of the intra-abdominal fat and body wall. There is a c hronic compression fracture of L3. There is mild lumbar spondylosis. There is a sacral decubitus ulce r with packing and erosions of bone. IMPRESSION: 1. Left-sided pneumonia. 2. Mild pulmonary edema. 3. Small pleural effusions. 4. Small volume of ascites. 5. Sacral decubitus ulcer. Erosions of the sacrum may be osteomyelitis and/or changes of debridement. Reviewed, dictated and finalized at location A. IMPRESSION: 1. Left-sided pneumonia. 2. Mild pulmonary edema. 3. Small pleural effusions. 4. Small volume of ascites. 5. Sacral decubitus ulcer. Erosions of the sacrum may be osteomyelitis and/or c hanges of debridement.
--- NOTE | ~2024-02-26 | CT_ITS ---
EXAMINATION: CT brain wo con DATE: 02/26/2024 19:57 INDICATION: AMS . TECHNIQUE: Computed tomography (CT) of the head was performed without intravenous contrast. The mA wa s adjusted according to patient size. Iterative reconstruction technique was employed. The dose-lengt h product was 832.33 mGy-cm. COMPARISON: 11/19/2019, report only. FINDINGS: No acute intracranial hemorrhage or extra-axial fluid collection. No hydrocephalus, mass, or herniation. No acute ischemic infarct. Unremarkable dural venous sinus attenuation. No acute osseous abnormality. Bilateral mastoid fluid. Left sphenoid air-fluid level. Fluid in the nasopharynx. The remaining aerat ed spaces are clear. Moderate atrophy and chronic white matter change. Atherosclerotic intracranial calcification. Focal o ld pontine, left cerebellar, right occipital, and left basal ganglia infarcts. IMPRESSION: No acute intracranial process. Left sphenoid and nasopharyngeal fluid, likely secondary to indwelling tube. Bilateral mastoid effusions. Reviewed, dictated and finalized at location K.
--- NOTE | ~2024-02-26 | CT_ITS ---
EXAMINATION: CTA chest PE protocol DATE: 02/26/2024 16:02 INDICATION: tachy, SOB TECHNIQUE: Computed tomography angiography (CTA) of the chest was performed with 85 mL Omnipaque-350 intravenous contrast timed to evaluate the pulmonary arteries. Coronal maximum intensity projection 3 D-reconstructions were created by the technologist. The dose-length product (DLP) was 166.28 mGy-cm. Automated exposure control and iterative reconstruction technique were employed. COMPARISON: 01/17/2020, report only. FINDINGS: Respiratory motion artifact. Lung parenchyma and airways: Emphysematous changes. Lingular and left lower lobe scarring. Airway shannon ris and bronchial thickening in the lingular and lower lobe bronchi. Pleura: Unremarkable. Thoracic inlet, axillae and chest wall: Status post CABG. Abandoned epicardial leads. Thoracic aorta: No significant dilation. No dissection. Moderate atherosclerotic plaque. Mediastinum: Normal. Heart and pericardium: Aortic and mitral calcifications. No pericardial effusion. Coronary artery calcifications: Moderate. Upper abdomen: Partially visualized IVC filter. Bones: Moderate height loss at T7. Pulmonary arteries: Study quality: Motion artifact limits evaluation of the subsegmental pulmonary ar teries. Otherwise, no pulmonary emboli detected. IMPRESSION: Limited evaluation of subsegmental pulmonary arteries. No CT evidence of acute central or segmental p ulmonary embolus. Lingular and left lower lobe bronchial wall thickening and bronchial debris may reflect bronchiolitis or aspiration. Moderate compression deformity at T7, may be acute or chronic, correlate for pain/tenderness. Reviewed, dictated and finalized at location K. IMPRESSION: Limited evaluation of subsegmental pulmonary arteries. No CT evidence of acute central or segmental pulmonary embolus. Lingular and left lower lobe bronchial wall thickening and bronchial debris may reflect bronchiolitis or aspiration. Moderate compression deformity at T7, may be acute or chronic, correlate for pa in/tenderness.
--- NOTE | ~2024-02-26 | XR_ITS ---
EXAMINATION: XR abdomen gastric tube rechec DATE: 03/01/2024 08:28 INDICATION: Nasogastric tube adjustment. TECHNIQUE: A semiupright view of the abdomen was obtained. COMPARISON: Abdomen radiograph 02/26/2024 FINDINGS: The lower abdomen is excluded. The nasogastric tube tip is in the distal stomach. There is a filter in the inferior vena cava. There is a central line tip at superior cavoatrial junction. IMPRESSION: 1. Nasogastric tube tip in the distal stomach. Reviewed, dictated and finalized at location A.
--- NOTE | ~2024-02-26 | XR_ITS ---
Portable chest x-ray Comparison: 02/26/2024 Clinical History: Respiratory failure Findings: Endotracheal tube, NG tube, and right IJ line are in place. Possible minimal left pleural effusion. Right lung clear. Cardiomediastinal silhouette is stable. Bones and soft tissues are unrem arkable. Impression: Support tubes, as above. Possible minimal left pleural effusion. Reviewed, dictated and finalized at location . Impression: Support tubes, as above. Possible minimal left pleural effusion.
--- NOTE | ~2024-02-26 | XR_ITS ---
Portable chest x-ray Comparison: 02/28/2024 Clinical History: Tube placement Findings: Endotracheal tube, NG tube, and right IJ line are in place. Probable focal atelectasis lef t midlung. Right lung clear. Cardiomediastinal silhouette is stable. Bones and soft tissues are unre markable. Impression: Support tubes, as above. Probable focal atelectasis versus focal pneumonitis left midlung. Reviewed, dictated and finalized at location . Impression: Support tubes, as above. Probable focal atelectasis versus focal pneumonitis left midlung.
--- NOTE | 2024-02-26 14:23 | ECG_ITS ---
Measurements Intervals [place] Rate: 142 P: 68 [place]: 117 QRS: 63 QRSD: 72 T: -39 QT: 328 AVG RR: 421 QTc: 410 QTCB: 505 QTCF: 437 Interpretive Statements SINUS TACHYCARDIA WITH SHORT [place] INTERVAL NON-SPECIFIC ST T-WAVE CHANGES ABNORMAL ECG SEE SCANNED COPY FOR SIGNATURE MTDD
--- NOTE | 2024-02-26 15:00 | PC.NURSE ---
RT at bedside. Bipap placed on pt.
[2024-02-26 15:05] LABS: Alveolar/Arterial O2 Gradient 151.2 mmHg; Base Excess ABG 1.1 mEq/l (+/-2.0); Carboxyhemoglobin 0.8 % THb (0-2.0); Fractional Inspired Oxygen 32 %; HCO3 ABG 22.1 mEq/l (22.0-26.0); Methemoglobin ABG 0.2 %THb (0-1.5); Oxygen Content ABG 16.9 %vol (16.0-22.0); Oxygen Saturation ABG 88.6 % (95.0-100.0); PCO2 ABG 25.9 mmHg (35.0-45.0); PO2 FiO2 Ratio Arterial Blood 1.46 %; Reduced Hemoglobin 15.2 %THb (0-5.0); Total Hemoglobin 14.4 g/dL (12.0-18.0)
[2024-02-26] MEDS: ALBUTEROL SULFATE NEB 2.5 MG/3 ML INH INHALATION (15:05)
--- NOTE | 2024-02-26 15:07 | ED.AMS ---
HPI - Altered Mental Status General Chief Complaint: Altered Mental Status Stated Complaint: AMS History of Present Illness HPI narrative: 63-year-old female presenting to the emergency department for evaluation unresponsive and altered mental status. Patient lives at home and is cared for by her daughter. Patient was admitted to [facility] for a sacral decubitus ulcer approximately from November 28 to December 07. Patient had no surgery while she was at [facility]. Patient was discharged home and did have antibiotics at home. Patient has been home for approximately 6 weeks. Family states that the patient was fine yesterday but at decreased responsiveness this morning and had a couple of episodes of emesis. Patient was transferred to [place] emergency department by EMS. Related Data Home Medications Medication Instructions Recorded Confirmed albuterol sulfate 90 mcg/actuation 2 puff inhalation QID 11/19/19 aerosol inhaler (ProAir HFA) aspirin 81 mg chewable tablet DAILY 11/19/19 atorvastatin 20 mg tablet DAILY 11/19/19 clopidogrel 75 mg tablet DAILY 11/19/19 glipizide 5 mg tablet mg 11/19/19 melatonin 10 mg capsule 10 mg PO HS PRN Insomnia 11/19/19 oxycodone-acetaminophen 5 mg-325 HS 11/19/19 mg tablet cholecalciferol (vitamin D3) 25 25 mcg PO DAILY 05/15/21 mcg (1,000 unit) chewable tablet (Vitamin D3) gabapentin 300 mg tablet 900 mg PO BID 05/15/21 metformin 500 mg tablet 500 mg PO BID 05/15/21 oxycodone 10 mg tablet 05/15/21 sacubitril 24 mg-valsartan 26 mg 05/15/21 tablet (Entresto) zolpidem 5 mg tablet 5 mg PO HS PRN Sedation 05/15/21 Allergies Allergy/AdvReac Type Severity Reaction Status Date / Time adhesive tape Allergy Mild Rash Verified 04/06/23 18:06 amoxicillin AdvReac Intermediate Nausea and Verified 04/06/23 18:06 Vomiting cephalexin AdvReac Mild YEAST Verified 04/06/23 18:06 INFECTION codeine AdvReac Mild Nausea Verified 04/06/23 18:06 Review of Systems Review of Systems: ROS unobtainable: Yes unobtainable due to medical condition PMFSH Past Medical History Medical History (Updated 02/26/24 @ 19:00 by Tali G Gerling, PA-C) Arthritis Bronchitis Chronic obstructive pulmonary disease Congestive heart failure Coronary artery disease Deep venous thrombosis Diverticulitis Hiatal hernia Hypertension Kidney stones Myocardial infarction Pneumonia Pulmonary embolism Transient ischemic attack Type 2 diabetes mellitus Surgical History Surgical History (Updated 02/26/24 @ 18:58 by Tali Nicole PA-C) History of above-knee amputation of both lower extremities History of cardiac catheterization History of section History of coronary artery bypass graft History of coronary artery stent placement History of inferior vena caval filter placement History of tonsillectomy History of tubal ligation Social History Social History (Updated 02/26/24 @ 18:58 by Tali Nicole PA-C) Social History: Surrogate medical decision maker: Code status: Full code. Smoking status: Current every day smoker Exam Narrative: APPEARANCE: Somnolent HEAD: normocephalic, atraumatic. EYES: PERRLA/EOMI, conjunctivae clear. NOSE: Normal no drainage EARS:TMS clear with good light reflex. THROAT: Pharynx clear, no exudate. NECK: Supple. No adenopathy, no masses. RESPIRATORY: Airway patent, respirations nonlabored. Clear to auscultation bilaterally, no rales, rhonchi, wheezing. CARDIOVASCULAR: Regular rate and rhythm without murmurs rubs or gallops. ABDOMINAL: Soft, nontender, nondistended, normal bowel sounds MUSCULOSKELETAL: Moves all extremities. Strength/ROM intact, No edema, No calf tenderness. NEURO: Cranial nerves II through XII intact. Patient moving all limbs spontaneously SKIN: Warm, dry. Normal Color Course Course Emergency Course: Patient was admitted to the ICU Vital Signs Vital signs: Vital Signs Temp
[2024-02-26 15:08] LABS: pH ABG 7.548 (7.350-7.450)
[2024-02-26 15:08] LABS: Basophils Absolute Auto 0.1 K/mm3 (0.0-0.1); Basophils Percent Auto 0.5 % (0.2-1.2); Hematocrit 32.7 % (37.0-47.0); Hemoglobin 11.1 g/dL (12.0-15.0); Immature Granulocyte Absolute 0.24 K/mm3 (0.00-0.031); Lymphocytes Percent Auto 0.8 % (18.3-44.2); Mean Corpuscular HGB Conc 33.9 g/dl (32-36); Mean Corpuscular Volume 82.6 fl (80-100); Mean Platelet Volume 10.1 fl (7.4-10.4); Monocytes Absolute Auto 0.3 K/mm3 (0.1-0.6); Monocytes Percent Auto 1.2 % (2.6-8.5); Neutrophils Percent Auto 96.5 % (45.5-73.1); Platelet Count Result 155 k/mm3 (150-375); Red Blood Count 3.96 M/mm3 (4.2-5.4); Red Cell Distribution Width 15.3 % (11.5-14.5); White Blood Count 23.8 K/mm3 (4.5-10.0)
[2024-02-26 15:09] LABS: PO2 ABG 46.7 mmHg (80.0-100.0)
[2024-02-26 15:11] LABS: Oxyhemoglobin 83.8 % THb (90.0-100.0)
[2024-02-26] MEDS: SODIUM CHLORIDE 0.9% IV 1,000 ML 999 ML IV CONT (15:11)
[2024-02-26 15:12] LABS: Device NASAL CANNULA; Site Drawn LEFT BRACHIAL
[2024-02-26 15:18] LABS: Lactic Acid Reflex 2.3 mmol/L (0.7-2.0)
[2024-02-26 15:24] LABS: Alanine Aminotransferase 14 U/L (6-35); Albumin Level 2.9 g/dL (3.5-5.1); Alkaline Phosphatase 235 U/L (38-126); Anion Gap 12 mmol/L (4-12); Aspartate Amino Transferase 31 U/L (14-36); Bilirubin,Total 1.3 mg/dL (0.2-1.3); Blood Urea Nitrogen 28 mg/dL (7-17); Calcium 9.4 mg/dL (8.4-10.2); Carbon Dioxide 22 mmol/L (22-30); Chloride 99 mmol/L (98-107); Estimated Glomerular Filt Rate > 60; Glucose 97 mg/dL (65-110); Magnesium 1.7 mg/dL (1.6-2.3); Potassium 2.8 mmol/L (3.4-5.0); Sodium 133 mmol/L (137-145)
[2024-02-26 15:28] LABS: NT Pro B Type Natriuretic Pept 7710 pg/mL (19.9-100)
[2024-02-26 15:33] LABS: INR 1.1; Prothrombin Time 14.6 Seconds (11.1-14.7)
[2024-02-26 15:57] LABS: Appearance Urine Cloudy (Clear); Bacteria Urine None Seen /hpf; Bilirubin Urine 1+ (Negative); Blood Urine Non-Hemolyzed Trace (Negative); Color Urine Dark Yellow (Yellow); Glucose Urine UA Trace mg/dL (Negative); Ketones Urine 1+ mg/dL (Negative); Leukocyte Esterase Ur Trace LEU/UL (Negative); Need Manual Microscopic Reviewed; Nitrate Urine Negative (Negative); Protein Urine 1+ mg/dL (Negative); RBC Urine 21-50 /hpf (0-2); Specific Grav Ur 1.021 (1.001-1.035); Squamous Epithelial Cell Urine Few /hpf (Few); WBC Urine 0-5 /hpf (0-3)
[2024-02-26 15:58] LABS: Add Urine Microscopic? YES
[2024-02-26] MEDS: CEFEPIME 2 GM/NS 50 ML 2 GM/50 ML BAG IVPB (16:25)
[2024-02-26] MEDS: FUROSEMIDE INJ 40 MG/4 ML VIAL IV PUSH (16:25)
[2024-02-26] MEDS: KCL 20 MEQ/SW 100 ML 100 ML 50 MEQ IVPB (16:25)
--- NOTE | 2024-02-26 16:48 | PC.NURSE ---
Pt oxygen saturation dropped to 75% while on bipap. MD at bedside, deciding to intubate. Crash cart brought into room along w difficult intubation kit and glidescope. RT at bedside. 1L NS bolus started 1654 20mg etomidate pushed IV 1655 100mg succinylcholine pushed IV 1655 7.5 ET tube inserted 1656 - 21 at the lip OG tube inserted 1703 - 53 at the teeth
[2024-02-26 17:21] LABS: MRSA (PCR) NOT DETECTED (NOT DETECTE)
[2024-02-26 18:03] LABS: Reflex Lactic Acid Yes or No Add Lactic
[2024-02-26] MEDS: MIDAZOLAM 100MG/NS 100ML(*CRX) 100 MG/100 ML BAG IV CONT (18:15)
[2024-02-26] MEDS: FENTANYL 2,500MCG/NS250ML(*CRX 2,500 MCG/250 ML BAG IV CONT (18:16)
[2024-02-26] MEDS: VANCOMYCIN 1,000 MG/NS 250 ML 1,000 MG/250 ML BAG 250 MG IVPB (18:17)
[2024-02-26] MEDS: SODIUM CHLORIDE 0.9% IV 1,000 ML 500 ML IV CONT (18:18)
[2024-02-26] MEDS: metroNIDAZOLE 500 MG/ISO 100ML 500 MG/100 ML BAG 100 MG IVPB (18:19)
--- NOTE | 2024-02-26 18:40 | PM.IMHP ---
H&P: HPI History of Present Illness Date/Time: 02/26/24 18:40 Chief Complaint: Altered mental status. Narrative: This is an unfortunate 63-year-old female with multiple medical problems including peripheral vascular disease status post bilateral [id number] amputation, coronary artery disease, congestive heart failure, chronic obstructive pulmonary disease, hypertension, venous thromboembolism, and other comorbidities who presented to the emergency department via EMS from home for evaluation of altered mental status. The patient is sedated and intubated and thus the following history is obtained from her medical records and information obtained from her family members. She was hospitalized at [facility] at the end of November 2023 with an infected sacral decubitus ulcer treated with antibiotics and wound VAC. Since that time she has been living with her daughter who is her primary chip mixing machine operator. Daughter found the patient minimally responsive before calling 911. On EMS arrival she had dry emesis on her chin and chest with labored breathing. A bottle of hydrocodone was noted to be sitting next to the patient but I believe all pills were accounted for appropriately and it is not suspected that she overdosed. Rather there are concerns for aspiration. Her daughter is concerned she may have had a stroke but there was no noticeable focal deficits on her brief exam. In the ED: Temperature has been as high as 101.3? F. She is tachycardic with heart rates in the 120s to 140s and tachypneic with respirations in the upper 30s to low 40s. She was intubated not long after arrival due to continued respiratory distress and altered mental status. Blood pressures were initially stable but dropped post intubation and a central line has been inserted in case she requires vasopressors. Labs were significant for WBC count of 23.8, hemoglobin 11.1, platelet 155, sodium 133, potassium 2.8, BUN 28, creatinine 0.60, lactic acid 2.3, proBNP 7710, total protein 6.0, albumin 2.9. Chest CTA showed no evidence of acute central or segmental PE but was limited in the subsegmental arteries, lingular and left lower lobe bronchial wall thickening and bronchial debris which may reflect bronchiolitis or aspiration, and moderate compression deformity at T7 which may be acute or chronic. She was bolused with a L of normal saline and received doses of cefepime, metronidazole, and vancomycin for suspicion of aspiration and infected sacral ulcer and she is being admitted in this setting for further care. Review of Systems Review of Systems: Unable to obtain given clinical condition. [facility] Past Medical History Medical History (Updated 02/26/24 @ 21:52 by Tali Nicole PA-C) Arthritis Chronic obstructive pulmonary disease Congestive heart failure Coronary artery disease Deep venous thrombosis Diverticulitis Hiatal hernia Hypertension Kidney stones Myocardial infarction Peripheral vascular disease Pneumonia Pulmonary embolism Tobacco dependence Transient ischemic attack Type 2 diabetes mellitus Surgical History Surgical History (Updated 02/26/24 @ 18:58 by Tali Nicole PA-C) History of above-knee amputation of both lower extremities History of cardiac catheterization History of section History of coronary artery bypass graft History of coronary artery stent placement History of inferior vena caval filter placement History of tonsillectomy History of tubal ligation Family History Family History (Updated 02/27/24 @ 00:02 by Shanell Torres RN) Grandparent Diabetes mellitus Social History Social History (Updated 02/27/24 @ 00:23 by Tali Nicole PA-C) Social History: Healthcare power of senior attorney: Britany Asif, daughter. Code status: Full code. Smoking packs per day: 0.5 Smoking cigarettes per day: 10.0 Years smoked: 50 Smoking pack-years: 25.00 Smoking status: Current every day smoker Tobacco type: cigarettes Alcoh
--- NOTE | 2024-02-26 19:14 | PC.NURSE ---
at bedside. Pt oxygen saturation dropping to low 80s. Dr. Patrick ordering 50mg rocuronium
[2024-02-26] MEDS: ROCURONIUM BROMIDE 50 MG/5 ML VIAL IV PUSH (19:21)
[2024-02-26 21:15] LABS: Hemoglobin A1C 5.9 % (<5.7)
[2024-02-26 21:19] LABS: Lactic Acid 1.3 mmol/L (0.7-2.0)
[2024-02-26 21:20] LABS: Ammonia < 9 umol/L (9-30); Ethanol < 10 mg/dL (<10)
--- NOTE | 2024-02-26 21:21 | PC.NURSE ---
Received call from Daughter and POMichael Britany who did not want aunts present in room to be aware that she was calling. She states that she cannot trust them and wanted to verify the information they are telling her. Daughter states she cant trust her aunts because they try to push her to to her limit concerning her anxiety. Britany is specifically concerned that her Mother had a stroke. Update was given. Daughter comes across as paranoid and defensive of her Mother's care. Daughter states she wants to know if she missed something or if there is anything else she could do and states she is glad she followed her instincts and sent her mother in. Daughter further explains that she has not left the house since May because she doesn't want to give her mother covid, home health comes to the house to address the wounds, and her mother was recently taken off Dilaudid because the daughter and MD thought it was affecting the patient's mental capacity; she also notes that the police entered her house with gun drawn when she called EMS for her Mother being unresponsive. Phone number verified and will call if there is a change in condition.
[2024-02-26 21:25] LABS: Creatine Kinase 111 U/L (30-135); Magnesium 1.6 mg/dL (1.6-2.3); Potassium 2.7 mmol/L (3.4-5.0)
[2024-02-26 21:51] LABS: Thyroid Stimulating Hormone Reflex 0.716 uIU/mL (0.465-4.68)
--- NOTE | 2024-02-26 22:11 | ECG_ITS ---
Measurements Intervals [place] Rate: 129 P: 67 VA: 130 QRS: 68 QRSD: 82 T: 78 QT: 393 QTc: 469 Interpretive Statements SINUS TACHYCARDIA ST DEVIATION AND MODERATE T-WAVE ABNORMALITY, NON-SPECIFIC ABNORMAL ECG SEE SCANNED COPY FOR SIGNATURE MTDD
[2024-02-26] MEDS: POTASSIUM CHLORIDE 20 MEQ PACKET (FOR LIQUID) FEED TUBE (22:32)
[2024-02-26] MEDS: KCL 40 MEQ/WATER 100 ML 100 ML 25 ML IVPB (22:33)
[2024-02-26] MEDS: SODIUM CHLORIDE 0.9% IV 1,000 ML 80 ML IV CONT (22:36)
[2024-02-26 23:49] LABS: Prealbumin < 3.0 mg/dL (17.6-36.0)
[2024-02-26 23:54] LABS: Amphetamine Screen Urine Negative (Negative); Barbiturate Screen Urine Negative (Negative); Benzodiazepines Screen Urine Positive (Negative); Cannabinoid Screen Urine Negative (Negative); Cocaine Screen Urine Negative (Negative); Methadone Screen Urine Negative (Negative); Opiate Screen Urine Negative (Negative); Phencyclidine Screen Urine Negative (Negative)
[2024-02-26 23:57] LABS: Glucose Point of Care 189 mg/dl (65-105)
[2024-02-27] VITALS (97 sets, daily range): BP systolic 64–155; BP diastolic 35–80; PULSE 79–144; RESP 15–35; TEMP 36.6–38.6; O2SAT 91–100; BMI 14.6
[2024-02-27 00:15] LABS: Influenza A QL RT-PCR Negative (Negative); Influenza B QL RT-PCR Negative (Negative); RSV RNA, RT-PCR Negative (Negative); SARS-CoV-2 RNA PCR Negative (Negative)
--- NOTE | 2024-02-27 00:32 | ADMGEN ---
This patient, Sofia Herrera, was admitted to Intensive Care Unit-2 at 2008. Patient/family oriented to hospital policies and general routines including ID bracelet, bed and alarms, visiting hours, pain management, procedures, bathroom and other care routines, personal items, smoking policy, room service/diet, and visiting hours. Information on how to activate the Rapid Response Team has been discussed. Patient/Family are encouraged to report perceived risks to care and to ask questions if they do not understand what they are told or what they should do.
--- NOTE | 2024-02-27 00:46 | ADMGEN ---
This patient, Sofia Herrera, was admitted to Intensive Care Unit-2. Patient/family oriented to hospital policies and general routines including ID bracelet, bed and alarms, visiting hours, pain management, procedures, bathroom and other care routines, personal items, smoking policy, room service/diet, and visiting hours. Information on how to activate the Rapid Response Team has been discussed. Patient/Family are encouraged to report perceived risks to care and to ask questions if they do not understand what they are told or what they should do.
[2024-02-27 00:53] LABS: MRSA (PCR) NOT DETECTED (NOT DETECTE)
[2024-02-27] MEDS: SACUBITRIL/VALSARTAN 24-26 MG TABLET 1 TAB PO (01:02)
[2024-02-27] MEDS: metroNIDAZOLE 500 MG/ISO 100ML 500 MG/100 ML BAG 100 MG IVPB ×3 (01:09→17:33)
[2024-02-27 01:11] LABS: Base Excess ABG -7.4 mEq/l (+/-2.0); Carboxyhemoglobin 0.3 % THb (0-2.0); Fractional Inspired Oxygen 100 %; HCO3 ABG 17.4 mEq/l (22.0-26.0); Methemoglobin ABG 0.5 %THb (0-1.5); Oxygen Content ABG 20.5 %vol (16.0-22.0); Oxygen Saturation ABG 99.8 % (95.0-100.0); Oxyhemoglobin 98.4 % THb (90.0-100.0); PCO2 ABG 33.5 mmHg (35.0-45.0); PO2 ABG 435.5 mmHg (80.0-100.0); PO2 FiO2 Ratio Arterial Blood 4.36 %; Reduced Hemoglobin 0.8 %THb (0-5.0); pH ABG 7.334 (7.350-7.450)
[2024-02-27 01:12] LABS: Site Drawn LEFT BRACHIAL
[2024-02-27 01:13] LABS: Arterial Blood Gas Vent Mode CMV; Arterial Blood Gas Ventilator rate 16 /MIN; Device VENTILATOR; Modified Allen's Test Pass
[2024-02-27 01:14] LABS: Arterial Blood Gas PEEP 5 cmH2O; Arterial Blood Gas Tidal Volume 400 ml
[2024-02-27] MEDS: IPRATROPIUM 0.5 MG/ALBUTEROL SULFATE 2.5 MG AMPUL.NEB 3 ML INHALATION ×4 (02:51→19:59)
[2024-02-27] MEDS: CEFEPIME 2 GM/NS 50 ML 2 GM/50 ML BAG IVPB ×2 (03:36→16:38)
[2024-02-27] MEDS: LACTATED RINGERS 500 ML 999 ML IV CONT (03:40)
[2024-02-27 05:04] LABS: Immature Platelet Fraction Pct 4.5 % (0.9-11.2); Mean Corpuscular HGB Conc 32.1 g/dl (32-36); Mean Corpuscular Hemoglobin 27.4 pg (26-34); Mean Corpuscular Volume 85.1 fl (80-100); Mean Platelet Volume 9.2 fl (7.4-10.4); Platelet Count Result 111 k/mm3 (150-375); Red Blood Count 3.29 M/mm3 (4.2-5.4); Red Cell Distribution Width 15.4 % (11.5-14.5); White Blood Count 17.5 K/mm3 (4.5-10.0)
[2024-02-27 05:12] LABS: Anion Gap 14 mmol/L (4-12); Blood Urea Nitrogen 27 mg/dL (7-17); Calcium 8.3 mg/dL (8.4-10.2); Carbon Dioxide 14 mmol/L (22-30); Chloride 108 mmol/L (98-107); Estimated CRCL calculation 42 ml/min; Estimated Glomerular Filt Rate > 60; Glucose 183 mg/dL (65-110); Potassium 3.9 mmol/L (3.4-5.0); Sodium 136 mmol/L (137-145)
[2024-02-27 05:40] LABS: Glucose Point of Care 186 mg/dl (65-105)
--- NOTE | 2024-02-27 05:42 | PC.NURSE ---
Multiple phone calls overnight with patient's daughter and Britany SAUNDERS. Daughter states patient's provider told her patient needs to be on strict bed rest, not sat up, and does not need turned while asleep if not complaining of pain. Daughter also noted that she has thoroughly disinfected the patient's room and bed to prevent further infection. Fifi asking about how long patient stay will be so she can figure out her income . Britany updated on patient condition, visiting hours, and encouraged to call with any further questions.
[2024-02-27 05:45] LABS: Base Excess ABG -10.4 mEq/l (+/-2.0); Carboxyhemoglobin 0.2 % THb (0-2.0); Fractional Inspired Oxygen 70 %; HCO3 ABG 12.9 mEq/l (22.0-26.0); Methemoglobin ABG 0.3 %THb (0-1.5); Oxygen Content ABG 15.5 %vol (16.0-22.0); Oxygen Saturation ABG 99.2 % (95.0-100.0); Oxyhemoglobin 97.7 % THb (90.0-100.0); PO2 ABG 168.3 mmHg (80.0-100.0); Reduced Hemoglobin 1.8 %THb (0-5.0); pH ABG 7.384 (7.350-7.450)
[2024-02-27 05:48] LABS: Device VENTILATOR; Modified Allen's Test Pass; PCO2 ABG 22.1 mmHg (35.0-45.0); Site Drawn LEFT BRACHIAL
[2024-02-27 05:49] LABS: Arterial Blood Gas Vent Mode CMV; Arterial Blood Gas Ventilator rate 16 /MIN
[2024-02-27 05:50] LABS: Arterial Blood Gas PEEP 5 cmH2O; Arterial Blood Gas Tidal Volume 400 ml
[2024-02-27] MEDS: NOREPINEPHRINE 8 MG/D5W 250 ML 8 MG/250 ML BAG 9.38 MG IV CONT (06:40)
[2024-02-27] MEDS: MIDAZOLAM HCL (*CRX) 2 MG/2 ML VIAL IV PUSH (06:47)
[2024-02-27] MEDS: fentaNYL CITRATE INJ (*CRX) 100 MCG/2 ML VIAL 50 MCG IV PUSH (06:47)
--- NOTE | 2024-02-27 06:54 | PC.NURSE ---
Current RASS -4. IV push fentanyl and versed administered as well as fentanyl drip increased to 75 mcgs and versed drip increased to [address] Sinclair order due to elevated HR and RR.
[2024-02-27] MEDS: ATORVASTATIN 20 MG TABLET BY MOUTH (08:19)
[2024-02-27] MEDS: PANTOPRAZOLE SODIUM IV 40 MG VIAL IV PUSH ×2 (08:19→21:58)
[2024-02-27] MEDS: ENOXAPARIN 40 MG/0.4 ML SYRINGE SUB-Q (08:19)
[2024-02-27] MEDS: PARoxetine 20 MG TABLET PO (08:19)
[2024-02-27] MEDS: CLOPIDOGREL BISULFATE 75 MG TABLET PO (08:19)
[2024-02-27] MEDS: ASPIRIN 81 MG CHEWABLE TABLET BY MOUTH (08:19)
--- NOTE | 2024-02-27 08:40 | WPDCNINT ---
Assessment and Plan Assessment and plan (1) Acute respiratory failure with hypoxia: Code(s): J96.01 - Acute respiratory failure with hypoxia Status: Acute Assessment and Plan: Acute Respiratory failure secondary to aspiration pneumonia, encephalopathy, COPD Patient now intubated and sedated Continue full mechanical ventilation support to prevent hypoxemia/hypercarbia and end organ damage. ABG and PCXR reviewed and will repeat in am. Wean FiO2 Low tidal volume ventilation strategy to prevent volutrauma Bronchodilators CT chest Limited evaluation of subsegmental pulmonary arteries. No CT evidence of acute central or segmental pulmonary embolus. Lingular and left lower lobe bronchial wall thickening and bronchial debris may reflect bronchiolitis or aspiration. (2) Encephalopathy: Code(s): G93.40 - Encephalopathy, unspecified Status: Acute Assessment and Plan: Patient presented with poor mental status. Head CT unremarkable Normal ammonia and TSH UDS positive for benzodiazepine, patient also is on other medication which can have sedative effects including gabapentin, opioid New stroke is another possibility and cannot be ruled out at this time Patient is now sedated mechanical ventilation limiting exam Will switch Versed to Precedex (3) Septic shock: Code(s): A41.9 - Sepsis, unspecified organism; R65.21 - Severe sepsis with septic shock Status: Acute Assessment and Plan: Septic shock secondary to aspiration pneumonia and sacral osteomyelitis Patient was found having vomitus on her face with CT showing Lingular and left lower lobe bronchial wall thickening and bronchial debris may reflect bronchiolitis or aspiration. Echo is ordered Blood and sputum cultures have been ordered Wound cultures were Will request wound care nurse and surgery to evaluate the wound Empiric vancomycin cefepime and Flagyl Continue IV fluids patient has elevated BNP but CT did not show any pulmonary edema hence will continue IV fluids but at a conservative rate Levophed titration to maintain map (4) Congestive heart failure: Code(s): I50.9 - Heart failure, unspecified Status: Acute Assessment and Plan: Patient has elevated BNP but initial CT scan did not show any pulmonary edema Patient appears to has CABG past. Echo is ordered and pending (5) Chronic obstructive pulmonary disease: Code(s): J44.9 - Chronic obstructive pulmonary disease, unspecified Status: Acute Assessment and Plan: Bronchodilators (6) Sacral osteomyelitis: Code(s): M46.28 - Osteomyelitis of vertebra, sacral and sacrococcygeal region Status: Acute (7) Type 2 diabetes mellitus: Code(s): E11.9 - Type 2 diabetes mellitus without complications Status: Acute Assessment and Plan: Start feeds Sliding scale insulin. Will Add Lantus if needed Hold glipizide and metformin (8) Sacral decubitus ulcer: Code(s): L89.159 - Pressure ulcer of sacral region, unspecified stage Status: Acute Assessment and Plan: Consult Wound Care and General surgery Will examine wound with wound care (9) Aspiration pneumonia: Code(s): J69.0 - Pneumonitis due to inhalation of food and vomit Status: Acute Assessment and Plan: See above (10) Gastritis: Code(s): K29.70 - Gastritis, unspecified, without bleeding Status: Acute Assessment and Plan: CT scan suggest gastritis and esophagitis PPI IV q.12 hours Plan DVT prophylaxis -Lovenox Stress ulcer prophylaxis -PPI Nutrition -start Tube Feeds Code Status - Full Code Obtain records from [facility] Total Critical Care Time - minutes Due to a high probability of clinically significant, life threatening deterioration, the patient required my highest level of preparedness to intervene emergently and I personally spent this critical care time directly and personally managing the
[2024-02-27 09:07] LABS: Glucose Point of Care 169 mg/dl (65-105)
[2024-02-27] MEDS: ALBUMIN HUMAN 5% 25 GM/500 ML BTL IV CONT (09:17)
[2024-02-27] MEDS: SODIUM BICARBONATE 8.4% 150 MEQ in WATER, STERILE FOR INJECTION 950 ML 100 MEQ IV CONT (09:17)
[2024-02-27] MEDS: SODIUM BICARBONATE TAB 650 MG TABLET PO ×2 (09:25→16:35)
[2024-02-27] MEDS: dexmedeTOMIDine 400 MCG/100 ML 400 MCG/100 ML BAG IV CONT (10:57)
[2024-02-27 12:11] LABS: Glucose Point of Care 156 mg/dl (65-105)
--- NOTE | 2024-02-27 13:13 | PM.CNGS ---
Assessment and Plan Assessment and plan (1) Septic shock: Code(s): A41.9 - Sepsis, unspecified organism; R65.21 - Severe sepsis with septic shock Status: Acute Assessment and Plan: Likely secondary to aspiration pneumonia versus osteomyelitis. Continue broad-spectrum IV antibiotics and critical care management. Wean vasopressors as tolerated. (2) Sacral osteomyelitis: Code(s): M46.28 - Osteomyelitis of vertebra, sacral and sacrococcygeal region Status: Acute Assessment and Plan: Large chronic stage IV sacral decubitus ulcer with sacrum and coccyx exposed with CT evidence of sacral osteomyelitis. Continue IV antibiotics. (3) Sacral decubitus ulcer: Code(s): L89.159 - Pressure ulcer of sacral region, unspecified stage Status: Acute Assessment and Plan: Large chronic stage IV sacral decubitus ulcer with sacrum and coccyx exposed with CT evidence of sacral osteomyelitis. There is no purulent drainage coming from the wound or any indication for urgent surgical intervention. There are a few small superficial areas of necrotic tissue, but no findings on exam to suggest a need for urgent surgical debridement. We would recommend to continue local wound care with Dakin's soaked gauze dressing changes for now. Frequent turning. Will continue to follow along for any acute changes. (4) Aspiration pneumonia: Code(s): J69.0 - Pneumonitis due to inhalation of food and vomit Status: Acute Assessment and Plan: Continue IV antibiotics and ICU management. (5) Encephalopathy: Code(s): G93.40 - Encephalopathy, unspecified Status: Acute (6) Peripheral vascular disease: Code(s): I73.9 - Peripheral vascular disease, unspecified Status: Acute Assessment and Plan: Bilateral AKA, bedridden (7) Chronic obstructive pulmonary disease: Code(s): J44.9 - Chronic obstructive pulmonary disease, unspecified Status: Acute (8) Congestive heart failure: Code(s): I50.9 - Heart failure, unspecified Status: Acute (9) Type 2 diabetes mellitus: Code(s): E11.9 - Type 2 diabetes mellitus without complications Status: Acute (10) Acute respiratory failure with hypoxia: Code(s): J96.01 - Acute respiratory failure with hypoxia Status: Acute Assessment and Plan: Continue ICU management, wean vent as tolerated Plan I have discussed the patient's case and plan of care with Dr. Zaragoza. Thank you for allowing us to see the patient in consultation and we will continue to follow along with you. History of Present Illness Consult details Consult date: 02/27/24 Reason for consult: other (Sacral decubitus ulcer) Requesting physician: Tali Nicole PA-C Narrative: This is a 63-year-old woman with multiple medical problems who presented to the ER for evaluation of altered mental status. She has a history of peripheral vascular disease status post bilateral [id number] amputations, coronary artery disease, congestive heart failure, COPD, hypertension, venous thromboembolism, and other comorbidities. She lives at home with her daughter and is bed ridden. She is unable to provide history, therefore history is obtained by review of the electronic medical record. She reportedly was admitted to [facility] in November of 2023 for an infected sacral decubitus ulcer and was treated with antibiotics and wound VAC therapy. Yesterday, her daughter found her unresponsive at home and called EMS. In the ER, she was febrile, tachycardic, and tachypneic. She was intubated not long after arrival due to respiratory distress and altered mental status. Labs [place] [address], potassium 2.8, BUN 28, creatinine 0.6, lactic acid 2.3, BNP 7710. Chest CTA showed no evidence of acute central or segmental PE but was limited, and findings to suggest aspiration pneumonia. CT head showed no acute intracranial p
[2024-02-27] MEDS: ALBUMIN HUMAN 25% 25 GM/100 ML 100 ML IVPB ×3 (13:15→23:36)
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
[2024-02-27] MEDS: SOD HYPOCHLORITE 1/4 STRENGTH 473 ML 1 APPLIC TOPICAL ×2 (15:38→21:58)
[2024-02-27 16:52] LABS: Glucose Point of Care 110 mg/dl (65-105)
[2024-02-27] MEDS: VANCOMYCIN 750 MG/NS 250 ML 750 MG/250 ML BAG 250 MG IVPB (17:34)
[2024-02-27 19:18] LABS: Anion Gap 9 mmol/L (4-12); Blood Urea Nitrogen 31 mg/dL (7-17); Carbon Dioxide 22 mmol/L (22-30); Chloride 105 mmol/L (98-107); Estimated CRCL calculation 42 ml/min; Estimated Glomerular Filt Rate > 60; Glucose 93 mg/dL (65-110); Potassium 2.7 mmol/L (3.4-5.0); Sodium 136 mmol/L (137-145)
[2024-02-27] MEDS: POTASSIUM CHLORIDE 20 MEQ PACKET (FOR LIQUID) 40 MEQ FEED TUBE (19:54)
[2024-02-27] MEDS: KCL 40 MEQ/WATER 100 ML 100 ML 25 ML IVPB (20:16)
[2024-02-27 21:21] LABS: Glucose Point of Care 85 mg/dl (65-105)
--- NOTE | 2024-02-27 21:37 | ECHO_ITS ---
Patient Info Name: Sofia Herrera Age: 63 years : 1960 Gender: Female Ht: 64 in Wt: 85 lbs BSA: 1.30 m2 HR: 128 bpm BP: 89 / 63 mmHg Heart Rhythm: Tachycardia, Sinus Rhythm Technical Quality: Fair Exam Date: 02/27/2024 7:34 AM Exam Location: Echo Lab Patient Status: Inpatient Admit Date: 02/26/2024 Staff Ordering Physician: Tali Nicole PA-C Tech Intern: Joy Alba RDCS Attending Provider: Matthew Atkinson MD Referring Physician: Bonnie LAWRENCE; Exam Type: CA echo doppler color flow Study Info Indications - CHF R00.0 - Tachycardia, unspecified Complete two-dimensional, color flow and Doppler transthoracic echocardiogram is performed. Summary 1. Complete two-dimensional, color flow and Doppler transthoracic echocardiogram is performed. 2. Severe left ventricular hypertrophy with modest enlargement and global systolic dysfunction ejection fraction approximately 30%. 3. Grade 1 diastolic noncompliance. 4. Thickened, calcified papillary muscle heads, normal mitral valve leaflets and no MR. 5. Mildly sclerotic aortic valve with well maintained leaflet separation. Left Ventricle Left ventricular chamber dimension is moderately enlarged. Left ventricular systolic function is severely reduced, estimated at 30-35%. There is severe concentric increased left ventricular wall thickness. The left ventricular diastolic function is grade I diastolic dysfunction. Right Ventricle Right ventricular chamber dimension is normal. Left Atria Left atrial chamber dimension is mildly enlarged. Right Atria Right atrial chamber dimension is normal. Aortic Valve The aortic valve is trileaflet. There is mild aortic valve sclerosis. Pulmonic Valve The pulmonic valve is not well visualized. Mitral Valve The mitral valve has normal leaflets. Tricuspid Valve The tricuspid valve leaflets are normal. Pericardium/Pleural The pericardium appears normal. Aorta The aortic root size at the sinus of Valsalva is normal. Left Ventricular Outflow Tract Name Value Normal LVOT 2D LVOT Diameter 2.0 cm LVOT Doppler LVOT Peak Gradient 2 mmHg LVOT Mean Gradient 1 mmHg LVOT VTI 7 cm LVOT VTI/AV VTI Ratio 0.7 LVOT Stroke Volume 22 ml LVOT CO 2.8 l/min LVOT CI 2.2 l/min/m2 Pulmonic Valve Name Value Normal RVOT Doppler RVOT Peak Gradient 1 mmHg PV Doppler PV Peak Gradient 2 mmHg Mitral Valve Name Value Normal MV Doppler
[2024-02-27] MEDS: MINERAL OIL/WHITE PETROLATUM OINTMENT 1 APPLIC EACH EYE (21:58)
[2024-02-27] MEDS: ACETAMINOPHEN 325 MG TABLET 650 MG PO (22:06)
[2024-02-28] VITALS (60 sets, daily range): BP systolic 71–159; BP diastolic 36–77; PULSE 85–138; RESP 16–20; TEMP 36.6–38.4; O2SAT 93–100
[2024-02-28] MEDS: POTASSIUM CHLORIDE 20 MEQ PACKET (FOR LIQUID) 40 MEQ FEED TUBE (00:02)
[2024-02-28] MEDS: LACTATED RINGERS 500 ML 999 ML IV CONT (00:40)
[2024-02-28] MEDS: LACTATED RINGERS 1,000 ML 999 ML (00:40)
[2024-02-28 00:58] LABS: Glucose Point of Care 106 mg/dl (65-105)
[2024-02-28] MEDS: IPRATROPIUM 0.5 MG/ALBUTEROL SULFATE 2.5 MG AMPUL.NEB 3 ML INHALATION ×4 (01:04→20:25)
[2024-02-28] MEDS: LACTATED RINGERS 500 ML 100 ML IV CONT (01:15)
[2024-02-28] MEDS: metroNIDAZOLE 500 MG/ISO 100ML 500 MG/100 ML BAG 100 MG IVPB ×3 (01:37→17:43)
[2024-02-28] MEDS: CEFEPIME 2 GM/NS 50 ML 2 GM/50 ML BAG IVPB ×2 (04:00→16:08)
[2024-02-28 05:00] LABS: Anion Gap 6 mmol/L (4-12); Blood Urea Nitrogen 29 mg/dL (7-17); Calcium 8.2 mg/dL (8.4-10.2); Carbon Dioxide 23 mmol/L (22-30); Chloride 107 mmol/L (98-107); Estimated CRCL calculation 42 ml/min; Estimated Glomerular Filt Rate > 60; Glucose 83 mg/dL (65-110); Magnesium 1.6 mg/dL (1.6-2.3); Potassium 4.1 mmol/L (3.4-5.0); Sodium 136 mmol/L (137-145)
[2024-02-28 05:05] LABS: Hematocrit 22.8 % (37.0-47.0); Hemoglobin 7.6 g/dL (12.0-15.0); Mean Corpuscular HGB Conc 33.3 g/dl (32-36); Mean Corpuscular Hemoglobin 27.8 pg (26-34); Mean Corpuscular Volume 83.5 fl (80-100); Mean Platelet Volume 9.8 fl (7.4-10.4); Platelet Count Result 61 k/mm3 (150-375); Red Blood Count 2.73 M/mm3 (4.2-5.4); Red Cell Distribution Width 15.4 % (11.5-14.5); White Blood Count 7.8 K/mm3 (4.5-10.0)
[2024-02-28] MEDS: ALBUMIN HUMAN 25% 25 GM/100 ML 100 ML IVPB ×4 (05:48→23:35)
[2024-02-28 06:09] LABS: Alveolar/Arterial O2 Gradient 123.5 mmHg; Carboxyhemoglobin 0.3 % THb (0-2.0); Fractional Inspired Oxygen 30 %; Methemoglobin ABG 0.5 %THb (0-1.5); Oxygen Content ABG 9.6 %vol (16.0-22.0); Oxygen Saturation ABG 92.9 % (95.0-100.0); Oxyhemoglobin 88.3 % THb (90.0-100.0); PCO2 ABG 26.4 mmHg (35.0-45.0); PO2 ABG 59.4 mmHg (80.0-100.0); PO2 FiO2 Ratio Arterial Blood 1.98 %; Reduced Hemoglobin 10.9 %THb (0-5.0); pH ABG 7.474 (7.350-7.450)
[2024-02-28 06:11] LABS: Arterial Blood Gas Ventilator rate 16 /MIN; Device VENTILATOR; Site Drawn RIGHT BRACHIAL; Total Hemoglobin 7.7 g/dL (12.0-18.0)
[2024-02-28 06:12] LABS: Arterial Blood Gas PEEP 5 cmH2O; Arterial Blood Gas Tidal Volume 400 ml; Arterial Blood Gas Vent Mode CMV
[2024-02-28] MEDS: MAGNESIUM SULF 2 GM/WATER 50ML 2 GM/50 ML BAG IVPB (06:50)
--- NOTE | 2024-02-28 07:53 | WPDINTPN ---
Progress Note: A&P Assessment and Plan (1) Acute respiratory failure with hypoxia: Code(s): J96.01 - Acute respiratory failure with hypoxia Status: Acute Assessment and Plan: Acute Respiratory failure secondary to aspiration pneumonia, encephalopathy, COPD Patient now intubated and sedated Continue full mechanical ventilation support to prevent hypoxemia/hypercarbia and end organ damage. ABG and PCXR reviewed and will repeat in am. Wean FiO2 Low tidal volume ventilation strategy to prevent volutrauma Bronchodilators CT chest Limited evaluation of subsegmental pulmonary arteries. No CT evidence of acute central or segmental pulmonary embolus. Lingular and left lower lobe bronchial wall thickening and bronchial debris may reflect bronchiolitis or aspiration. ABG and chest x-ray reviewed. Tidal volume 360 Weaning will depend on mental status (2) Encephalopathy: Code(s): G93.40 - Encephalopathy, unspecified Status: Acute Assessment and Plan: Patient presented with poor mental status. Head CT unremarkable Normal ammonia and TSH UDS positive for benzodiazepine, patient also is on other medication which can have sedative effects including gabapentin, opioid New stroke is another possibility and cannot be ruled out at this time Patient is now sedated mechanical ventilation limiting exam 02/26 Versed was switched to Precedex 02/27 will perform sedation holiday and both fentanyl and Precedex have been put on hold (3) Septic shock: Code(s): A41.9 - Sepsis, unspecified organism; R65.21 - Severe sepsis with septic shock Status: Acute Assessment and Plan: Septic shock secondary to aspiration pneumonia and sacral osteomyelitis Patient was found having vomitus on her face with CT showing Lingular and left lower lobe bronchial wall thickening and bronchial debris may reflect bronchiolitis or aspiration. Echo as below Blood cultures are growing Gram-negative rods in 2/2 bottles sputum cultures have been ordered and are pending Wound cultures were done and are pending Wound was evaluated by wound care and local wound care will be done as per recommendations Continue Empiric vancomycin cefepime and Flagyl Patient has received significant amount of IV fluids now and will hold further IV fluids Levophed titration to maintain map (4) Congestive heart failure: Code(s): I50.9 - Heart failure, unspecified Status: Acute Assessment and Plan: Patient has elevated BNP but initial CT scan did not show any pulmonary edema Patient had CABG 11 years ago. Echo Summary ? 1. Complete two-dimensional, color flow and Doppler transthoracic echocardiogram is performed. ? 2. Severe left ventricular hypertrophy with modest enlargement and global systolic dysfunction ejection fraction approximately 30%. ? 3. Grade 1 diastolic noncompliance. ? 4. Thickened, calcified papillary muscle heads, normal mitral valve leaflets and no MR. ? 5. Mildly sclerotic aortic valve with well maintained leaflet separation Hold further IV fluids (5) Chronic obstructive pulmonary disease: Code(s): J44.9 - Chronic obstructive pulmonary disease, unspecified Status: Acute Assessment and Plan: Bronchodilators (6) Sacral osteomyelitis: Code(s): M46.28 - Osteomyelitis of vertebra, sacral and sacrococcygeal region Status: Acute Assessment and Plan: See above (7) Type 2 diabetes mellitus: Code(s): E11.9 - Type 2 diabetes mellitus without complications Status: Acute Assessment and Plan: Continue tube feeds Sliding scale insulin. Will Add Lantus if needed Hold glipizide and metformin (8) Sacral decubitus ulcer: Code(s): L89.159 - Pressure ulcer of sacral region, unspecified stage Status: Acute Assessment and Plan: Exam the wounds with the wound care nurse on 02/26. Dressing on both stumps and r both iliac bones which appears to be preventive, the
[2024-02-28 07:58] LABS: Creatine Kinase 147 U/L (30-135)
[2024-02-28] MEDS: ASPIRIN 81 MG CHEWABLE TABLET BY MOUTH (08:10)
[2024-02-28] MEDS: PANTOPRAZOLE SODIUM IV 40 MG VIAL IV PUSH ×2 (08:10→21:04)
[2024-02-28] MEDS: CLOPIDOGREL BISULFATE 75 MG TABLET PO (08:10)
[2024-02-28] MEDS: ATORVASTATIN 20 MG TABLET BY MOUTH (08:10)
[2024-02-28] MEDS: MINERAL OIL/WHITE PETROLATUM OINTMENT 1 APPLIC EACH EYE ×2 (08:11→21:04)
[2024-02-28] MEDS: DEXTROSE 50% 25 GM/50 ML SYRINGE IV PUSH (08:19)
[2024-02-28 08:37] LABS: Glucose Point of Care 59 mg/dl (65-105)
[2024-02-28] MEDS: SOD HYPOCHLORITE 1/4 STRENGTH 473 ML 1 APPLIC TOPICAL ×2 (09:15→21:04)
[2024-02-28 10:35] LABS: Glucose Point of Care 117 mg/dl (65-105)
--- NOTE | 2024-02-28 10:51 | P.CDI_ITS ---
CDI Query Clarification Request BMI 14.6 Nutritional Diagnostic Statement Severe protein calorie malnutrition related to increased needs from wounds, inadequate intake as evidenced by severe muscle wasting (temporalis, clavicles, shoulders) and severe fat loss ( buccal fat pads, ribs). Increased energy expenditure related to sepsis as evidenced by mechanical ventilation, need for full tube feeding. Please refer to the comprehensive nutrition assessment for further information. Please clarify severity of protein calorie malnutrition if known: * Mild * Moderate * Severe * Other/ Unspecified <Latisha Laura RN - Last Filed: 02/28/24 10:57> Provider Comments Referred to hospitalist <Michael Sinclair MD - Last Filed: 02/29/24 09:25>
--- NOTE | 2024-02-28 11:01 | PCNFU ---
Nutrition Follow-Up Complete: 1. Increased energy expenditure related to sepsis as evidenced by mechanical ventilation, need for full tube feeding 2. Severe protein calorie malnutrition related to increased needs from wounds, inadequate intake as evidenced by severe muscle wasting (temporalis, clavicles, shoulders) and severe fat loss (buccal fat pads, ribs) Goal: Meet estimated protein energy needs Patient is progressing towards goal. We will continue current goal. Pt current nutrition is Vital AF 1.2 at 30 ml/hr. Nutrition recommendation: Benton BID for wound healing. Last recorded weight is 38.8 kg, stable Bowel Motility: +Bm reported 02/27 Labs Reviewed:BUN 29, Na 136, Hct 22.8,Hgb 7.63 Meds Noted:Levophed, Flagyl Skin: Stage III-right medical flank, Left medial flank-Deep Tissue, Right Hip-Deep Tissue Additional Notes: Patient remains on mechanical vent. Tube feedings being tolerated at 30 ml/hr with plans to advance to 40 ml/hr. Flush at 30 ml q 4 hours. Protein Modular added of Benton BID for wound healing. Agree with diet orders. Monitoring orders, labs, vitals, meds, weights, plan of care Follow up daily in rounds, reassess Tuesdays and Fridays
--- NOTE | 2024-02-28 11:03 | P.CDI_ITS ---
CDI Query Clarification Request CHF is documented in the assessment and plan. Documented history of CHF. Entresto listed as a home medication. Echo completed 02/27/24 Elevated BNP on 02/26/24 lab work. Additional information noted in the medical record: (4) Congestive heart failure: ?Code(s): I50.9 - Heart failure, unspecified ?Status:?Acute ?Assessment and Plan: Patient has elevated BNP but initial CT scan did not show any pulmonary edema Patient had CABG 11 years ago.? Echo Summary ? 1. Complete two-dimensional, color flow and Doppler transthoracic echocardiogram is performed. ? 2. Severe left ventricular hypertrophy with modest enlargement and global systolic dysfunction ejection fraction approximately 30%. ? 3. Grade 1 diastolic noncompliance. ? 4. Thickened, calcified papillary muscle heads, normal mitral valve leaflets and no MR. ? 5. Mildly sclerotic aortic valve with well maintained leaflet separation Please specify type and acuity of heart failure if known. * Acute * Chronic * Acute on Chronic * Unknown * Systolic * Diastolic * Combined Systolic and Diastolic * Unknown
[2024-02-28 12:35] LABS: Glucose Point of Care 115 mg/dl (65-105)
[2024-02-28 13:43] LABS: Anion Gap 9 mmol/L (4-12); Blood Urea Nitrogen 31 mg/dL (7-17); Calcium 8.3 mg/dL (8.4-10.2); Carbon Dioxide 21 mmol/L (22-30); Chloride 107 mmol/L (98-107); Estimated CRCL calculation 42 ml/min; Estimated Glomerular Filt Rate > 60; Glucose 101 mg/dL (65-110); Magnesium 2.2 mg/dL (1.6-2.3); Potassium 3.7 mmol/L (3.4-5.0); Sodium 137 mmol/L (137-145)
--- NOTE | 2024-02-28 14:28 | PM.PNGS ---
Progress Note: A&P Assessment and Plan (1) Septic shock: Code(s): A41.9 - Sepsis, unspecified organism; R65.21 - Severe sepsis with septic shock Status: Acute Assessment and Plan: Likely secondary to aspiration pneumonia versus osteomyelitis. Continue broad-spectrum IV antibiotics and critical care management. Wean vasopressors as tolerated. (2) Sacral osteomyelitis: Code(s): M46.28 - Osteomyelitis of vertebra, sacral and sacrococcygeal region Status: Acute Assessment and Plan: Large chronic stage IV sacral decubitus ulcer with sacrum and coccyx exposed with CT evidence of sacral osteomyelitis. Continue IV antibiotics. Per family, patient was treated with 6 weeks of IV antibiotics after her discharge from [facility] in November, staff has already requested records. (3) Sacral decubitus ulcer: Code(s): L89.159 - Pressure ulcer of sacral region, unspecified stage Status: Acute Assessment and Plan: Large chronic stage IV sacral decubitus ulcer with sacrum and coccyx exposed with CT evidence of sacral osteomyelitis. There is no purulent drainage coming from the wound or any indication for urgent surgical intervention. Continue local wound care with Dakin's soaked gauze dressing changes. Frequent turning. (4) Aspiration pneumonia: Code(s): J69.0 - Pneumonitis due to inhalation of food and vomit Status: Acute Assessment and Plan: Continue IV antibiotics and ICU management. (5) Acute respiratory failure with hypoxia: Code(s): J96.01 - Acute respiratory failure with hypoxia Status: Acute Assessment and Plan: Continue ICU management, wean vent as tolerated Plan I have discussed the patient's case and plan of care with Dr. Zaragoza. Subjective Subjective Date/Time Seen: 02/28/24 14:28 Interval history: Patient intubated in the ICU. Sedation turned off this morning per nursing. She is not following commands but did open her eyes while I was in the room. Dressing change today with the nurse. She is still on Levophed today. Review of Systems Review of Systems: ROS unobtainable: Yes unobtainable due to endotracheal tube Exam Const: General: ill appearing and patient obtunded Skin: Other: Large stage IV sacral decubitus ulcer without any significant change, still no purulence drainage, no crepitus, no significant necrotic tissue. Sacral bone exposed. Objective Data Vital Signs Vital Signs: Vital Signs - 24 hr 02/27/24 14:30 02/27/24 14:45 02/27/24 14:50 Temperature Pulse Rate 101 H 100 103 H Respiratory Rate Blood Pressure 95/45 L 92/47 L Pulse Oximetry 97 Oxygen Delivery Mechanical Ventilation Oxygen Flow Rate Fraction of Inspired Oxygen 40 02/27/24 15:04 02/27/24 15:00 02/27/24 15:15 Temperature Pulse Rate 101 H 101 H Respiratory Rate Blood Pressure 92/48 L 96/46 L Pulse Oximetry 95 Oxygen Delivery Mechanical Ventilation Oxygen Flow Rate Fraction of Inspired Oxygen 30 02/27/24 15:30 02/27/24 15:45 02/27/24 16:00 Temperature Pulse Rate 101 H 101 H 99 Respiratory Rate Blood Pressure 102/45 L 104/48 L 89/47 L Pulse Oximetry Oxygen Delivery Oxygen Flow Rate Fraction of Inspired Oxygen 02/27/24 16:15 02/27/24 16:00 02/27/24 16:30 Temperature 99.5 F Pulse Rate 99 100 99 Respiratory Rate 16 Blood Pressure 88/45 L 89/47 L 91/45 L Pulse Oximetry 96 Oxygen Delivery Oxygen Flow Rate Fraction of Inspired Oxygen 02/27/24 16:45 02/27/24 16:00 02/27/24 16:00 Temperature Pulse Rate 98 99 99 Respiratory Rate 16 16 Blood Pressure 96/47 L Pulse Oximetry Oxygen Delivery Oxygen Flow Rate Fraction of Inspired Oxygen 02/27/24 17:00 02/27/24 17:15 02/27/24 16:00 Temperature Pulse Rate 100 99 100 Respiratory Rate Blood Pressure 115/51 L 102/48 L Pulse Oximetry Oxygen Delivery Oxygen Flow R
[2024-02-28] MEDS: NOREPINEPHRINE 8 MG/D5W 250 ML 8 MG/250 ML BAG 15 MG IV CONT (15:01)
[2024-02-28 16:16] LABS: Glucose Point of Care 132 mg/dl (65-105)
[2024-02-28 18:15] LABS: Vancomycin Trough 8.2 ug/mL (10.0-20.0)
[2024-02-28] MEDS: VANCOMYCIN 750 MG/NS 250 ML 750 MG/250 ML BAG 250 MG IVPB (20:04)
[2024-02-28 20:59] LABS: Glucose Point of Care 136 mg/dl (65-105)
[2024-02-29] VITALS (48 sets, daily range): BP systolic 103–182; BP diastolic 46–88; PULSE 100–155; RESP 17–32; TEMP 36.8–38.7; O2SAT 98–100
[2024-02-29 01:06] LABS: Glucose Point of Care 135 mg/dl (65-105)
[2024-02-29] MEDS: metroNIDAZOLE 500 MG/ISO 100ML 500 MG/100 ML BAG 100 MG IVPB ×2 (01:39→10:40)
[2024-02-29] MEDS: IPRATROPIUM 0.5 MG/ALBUTEROL SULFATE 2.5 MG AMPUL.NEB 3 ML INHALATION ×4 (02:40→20:19)
[2024-02-29] MEDS: CEFEPIME 2 GM/NS 50 ML 2 GM/50 ML BAG IVPB (04:02)
[2024-02-29 04:41] LABS: Alveolar/Arterial O2 Gradient 68.2 mmHg; Base Excess ABG -2.6 mEq/l (+/-2.0); Carboxyhemoglobin 0.2 % THb (0-2.0); Fractional Inspired Oxygen 30 %; HCO3 ABG 20.6 mEq/l (22.0-26.0); Methemoglobin ABG 0.5 %THb (0-1.5); Oxygen Content ABG 11.2 %vol (16.0-22.0); Oxygen Saturation ABG 98.4 % (95.0-100.0); Oxyhemoglobin 96.3 % THb (90.0-100.0); PCO2 ABG 29.2 mmHg (35.0-45.0); PO2 ABG 111.4 mmHg (80.0-100.0); PO2 FiO2 Ratio Arterial Blood 3.71 %; Total Hemoglobin 8.1 g/dL (12.0-18.0); pH ABG 7.466 (7.350-7.450)
[2024-02-29 05:11] LABS: Immature Platelet Fraction Pct 13.2 % (0.9-11.2); Mean Corpuscular HGB Conc 33.5 g/dl (32-36); Mean Corpuscular Hemoglobin 27.9 pg (26-34); Mean Corpuscular Volume 83.3 fl (80-100); Mean Platelet Volume 11.5 fl (7.4-10.4); Platelet Count Result 38 k/mm3 (150-375); Red Blood Count 2.22 M/mm3 (4.2-5.4); Red Cell Distribution Width 15.5 % (11.5-14.5); White Blood Count 16.2 K/mm3 (4.5-10.0)
[2024-02-29 05:13] LABS: Hemoglobin 6.2 g/dL (12.0-15.0)
[2024-02-29 05:14] LABS: Hematocrit 18.5 % (37.0-47.0)
[2024-02-29 05:24] LABS: Anion Gap 13 mmol/L (4-12); Blood Urea Nitrogen 39 mg/dL (7-17); Calcium 8.8 mg/dL (8.4-10.2); Carbon Dioxide 18 mmol/L (22-30); Chloride 108 mmol/L (98-107); Estimated CRCL calculation 34 ml/min; Estimated Glomerular Filt Rate > 60; Glucose 155 mg/dL (65-110); Magnesium 2.3 mg/dL (1.6-2.3); Potassium 3.9 mmol/L (3.4-5.0); Sodium 139 mmol/L (137-145)
[2024-02-29 06:58] LABS: Device VENTILATOR; Site Drawn LEFT BRACHIAL
[2024-02-29 06:59] LABS: Arterial Blood Gas PEEP 5 cmH2O; Arterial Blood Gas Tidal Volume 360 ml; Arterial Blood Gas Vent Mode CMV; Arterial Blood Gas Ventilator rate 16 /MIN
[2024-02-29] MEDS: ALBUMIN HUMAN 25% 25 GM/100 ML 100 ML IVPB ×3 (07:23→17:08)
[2024-02-29 07:41] LABS: Glucose Point of Care 165 mg/dl (65-105)
--- NOTE | 2024-02-29 09:16 | WPDINTPN ---
Progress Note: A&P Assessment and Plan (1) Acute respiratory failure with hypoxia: Code(s): J96.01 - Acute respiratory failure with hypoxia Status: Acute Assessment and Plan: Acute Respiratory failure secondary to aspiration pneumonia, encephalopathy, COPD Patient now intubated and sedated Continue full mechanical ventilation support to prevent hypoxemia/hypercarbia and end organ damage. ABG and PCXR reviewed and will repeat in am. Wean FiO2 Low tidal volume ventilation strategy to prevent volutrauma Bronchodilators CT chest Limited evaluation of subsegmental pulmonary arteries. No CT evidence of acute central or segmental pulmonary embolus. Lingular and left lower lobe bronchial wall thickening and bronchial debris may reflect bronchiolitis or aspiration. ABG and chest x-ray reviewed. Decrease Tidal volume to 320 Weaning will depend on mental status (2) Encephalopathy: Code(s): G93.40 - Encephalopathy, unspecified Status: Acute Assessment and Plan: Patient presented with poor mental status. Head CT unremarkable Normal ammonia and TSH UDS positive for benzodiazepine, patient also is on other medication which can have sedative effects including gabapentin, opioid New stroke is another possibility and cannot be ruled out at this time Patient is now sedated mechanical ventilation limiting exam 02/26 Versed was switched to Precedex 02/27 will perform sedation holiday and both fentanyl and Precedex have been put on hold 02/28 opens her eyes to pain. No other response. Will repeat head CT. Check EEG (3) Septic shock: Code(s): A41.9 - Sepsis, unspecified organism; R65.21 - Severe sepsis with septic shock Status: Acute Assessment and Plan: Septic shock secondary to aspiration pneumonia and sacral osteomyelitis Patient was found having vomitus on her face with CT showing Lingular and left lower lobe bronchial wall thickening and bronchial debris may reflect bronchiolitis or aspiration. Echo as below Blood cultures are growing Gram-negative rods in 2/2 bottles Sputum cultures growing MSSA Wound cultures growing Proteus mirabilis and Enterococcus faecalis Wound was evaluated by wound care and local wound care will be done as per recommendations Continue Empiric vancomycin, change cefepime and Flagyl to meropenem Patient has received significant amount of IV fluids now and will hold further IV fluids Levophed titration to maintain map (4) Congestive heart failure: Code(s): I50.9 - Heart failure, unspecified Status: Acute Assessment and Plan: Patient has elevated BNP but initial CT scan did not show any pulmonary edema Patient had CABG 11 years ago. Echo Summary ? 1. Complete two-dimensional, color flow and Doppler transthoracic echocardiogram is performed. ? 2. Severe left ventricular hypertrophy with modest enlargement and global systolic dysfunction ejection fraction approximately 30%. ? 3. Grade 1 diastolic noncompliance. ? 4. Thickened, calcified papillary muscle heads, normal mitral valve leaflets and no MR. ? 5. Mildly sclerotic aortic valve with well maintained leaflet separation Hold further IV fluids Acute on chronic systolic congestive Heart failure (5) Sacral decubitus ulcer: Code(s): L89.159 - Pressure ulcer of sacral region, unspecified stage Status: Acute Assessment and Plan: Examined the wounds with the wound care nurse on 02/26. Dressing on both stumps and r both iliac bones which appears to be preventive, there is a deep tissue injury 100 the dressing on the right eyelid bone, patient has deep tissue injury on the left side of back of her chest and a pressure ulcer on the right side of back of her chest, there is a large area of fungal infection of the skin on the back, patient's hair were matted together and there was either stool or gum stocking with hair, her hair was cut by scissors after showing it to her sister to properly assess c
[2024-02-29] MEDS: VANCOMYCIN 750 MG/NS 250 ML 750 MG/250 ML BAG 250 MG IVPB ×2 (09:36→20:58)
[2024-02-29] MEDS: ASPIRIN 81 MG CHEWABLE TABLET BY MOUTH (09:37)
[2024-02-29] MEDS: ATORVASTATIN 20 MG TABLET BY MOUTH (09:37)
[2024-02-29] MEDS: CLOPIDOGREL BISULFATE 75 MG TABLET PO (09:37)
[2024-02-29] MEDS: MINERAL OIL/WHITE PETROLATUM OINTMENT 1 APPLIC EACH EYE ×2 (09:37→20:59)
[2024-02-29] MEDS: SODIUM BICARBONATE TAB 650 MG TABLET FEED TUBE ×2 (09:37→17:08)
[2024-02-29] MEDS: PANTOPRAZOLE SODIUM IV 40 MG VIAL IV PUSH ×2 (09:38→20:59)
[2024-02-29] MEDS: SOD HYPOCHLORITE 1/4 STRENGTH 473 ML 1 APPLIC TOPICAL ×2 (09:38→20:59)
--- NOTE | 2024-02-29 10:47 | PCFNICU ---
ICU Rounding Note: Pt current nutrition is Vital AF 1.2 at 40 ml/hr Last recorded weight is 44.3 kg, up from 38.6 kg on admit. Bowel Motility:+Bm reported 02/27 Labs Reviewed:Glu 155, BUN 39, Hct 18.5, Hgb 6.2 Meds Noted:Flagyl, Cefepime Skin: Stage III-right medial flank, right hip-Deep Tissue, Left medial-Deep Tissue. Additional Notes: Patient remains mechanical vent. No sedation for the last 24 hours. Tube feedings of Vital AF 1.2 at 40 ml/hr. Residuals noted at 150 ml this morning. Tube feedings providing 1056 kcals/66 gms protein/713 ml water. Flush 30 ml q 4 hours. Protein Modulars of Benton BID providing an additional 80 kcals, 7 gms argenine, 7 gms glutamine, 2.5 gms protein. Total nutrition: 1216 kcals/71 gms protein. (90% protein needs at 35 kcal/kg and 100% kcal needs at 1.8-2.0 gm/kg). Agree with diet orders at this time. Monitoring orders, labs, vitals, meds, weights, plan of care Follow up daily in rounds, reassess Tuesdays and Fridays.
[2024-02-29 11:39] LABS: Glucose Point of Care 181 mg/dl (65-105)
[2024-02-29] MEDS: MEROPENEM 1 GM/NS 100 ML 1 GM/100 ML BAG IVPB ×2 (12:27→20:59)
--- NOTE | 2024-02-29 13:17 | PC.NURSE ---
Spoke with daughter, Britany, @ approx 1215. 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 Provided update on current condition and procedures planned this afternoon. This RN asked if she will be visiting today, she stated that she would be unable to visit and see her mother in this condition due to her severe anxiety and seeing her on a ventilator.
--- NOTE | 2024-02-29 14:31 | P.NEURO_ITS ---
Neurology EEG Report General Information Date of Study: 02/29/24 TEST eeg DIAGNOSIS change in the mental status CONDITION OF RECORDING unresponsive EEG NUMBER [id number] CLINICAL HISTORY patient was brought in to hospital for altered mental status and has declined while here is now on vent with no sedation for over 24hours and remains unresponsive patient is also septic. EEG DESCRIPTION Background rhythm consists of low to medium voltage 5 to 7 hertz per 2nd theta admixed with low-voltage 15 to 18 hertz per 2nd beta with poor anterior- posterior grading but without any paroxysmal activity. No evidence of paroxysmal activity noted throughout the tracing . Non paroxysmal. IMPRESSION Abnormal record due to the absence of normal background rhythm and due to the presence of the asymmetrical theta activity clinical correlation recommended this tracing is suggestive of underlying organic or metabolic encephalopathy with focal insult but there is no evidence of any paroxysmal Activity.
[2024-02-29] MEDS: SODIUM CHLORIDE 0.9% IV 250 ML 30 ML IV CONT (16:12)
[2024-02-29 16:19] LABS: Glucose Point of Care 197 mg/dl (65-105)
--- NOTE | 2024-02-29 18:42 | PC.NURSE ---
During 1800 repositioning, patient became tachycardic in 130s and began biting against ET tube, this is new activity as initially patient was unresponsive to most painful stimuli aside from repositioning and dressing changes. Family at bedside to witness. Cough, blink, and pupillary assessments remain unchanged.
[2024-02-29] MEDS: ACETAMINOPHEN 325 MG TABLET 650 MG PO (19:01)
--- NOTE | 2024-02-29 21:42 | ECG_ITS ---
Measurements Intervals [place] Rate: 130 P: 52 MI: 108 QRS: 53 QRSD: 85 T: 60 QT: 280 QTc: 357 Interpretive Statements SINUS TACHYCARDIA WITH SHORT MI INTERVAL POSSIBLE ANTERIOR MYOCARDIAL INFARCTION [30 ms QWAVE IN V3/V5, OR R < 0.2 mV IN V4], OF INDETERMINATE AGE ABNORMAL ECG SEE SCANNED COPY FOR SIGNATURE MTDD
[2024-02-29] MEDS: dexmedeTOMIDine 400 MCG/100 ML 400 MCG/100 ML BAG IV CONT (22:00)
[2024-02-29 22:17] LABS: Glucose Point of Care 136 mg/dl (65-105)
[2024-03-01] VITALS (45 sets, daily range): BP systolic 75–131; BP diastolic 47–72; PULSE 95–129; RESP 21–35; TEMP 36.8–38.5; O2SAT 92–100
[2024-03-01] MEDS: NOREPINEPHRINE 8 MG/D5W 250 ML 8 MG/250 ML BAG 9.38 MG IV CONT (00:45)
[2024-03-01 01:05] LABS: Glucose Point of Care 89 mg/dl (65-105)
[2024-03-01] MEDS: IPRATROPIUM 0.5 MG/ALBUTEROL SULFATE 2.5 MG AMPUL.NEB 3 ML INHALATION ×4 (02:08→19:57)
[2024-03-01 04:58] LABS: Hematocrit 27.9 % (37.0-47.0); Hemoglobin 9.7 g/dL (12.0-15.0); Immature Platelet Fraction Pct 15.5 % (0.9-11.2); Mean Corpuscular HGB Conc 34.8 g/dl (32-36); Mean Corpuscular Volume 80.6 fl (80-100); Platelet Count Result 40 k/mm3 (150-375); Red Blood Count 3.46 M/mm3 (4.2-5.4); Red Cell Distribution Width 15.4 % (11.5-14.5); White Blood Count 29.6 K/mm3 (4.5-10.0)
[2024-03-01 05:09] LABS: Anion Gap 17 mmol/L (4-12); Blood Urea Nitrogen 45 mg/dL (7-17); Calcium 9.4 mg/dL (8.4-10.2); Carbon Dioxide 15 mmol/L (22-30); Chloride 109 mmol/L (98-107); Estimated CRCL calculation 38 ml/min; Estimated Glomerular Filt Rate > 60; Glucose 123 mg/dL (65-110); Magnesium 2.2 mg/dL (1.6-2.3); Potassium 3.3 mmol/L (3.4-5.0); Sodium 141 mmol/L (137-145)
--- NOTE | 2024-03-01 05:46 | PC.NURSE ---
Received call from daughter CHIP who requested update on her mother. I informed her that the pt continues to be treated for sepsis, remains on a ventilator, she is not responsive to stimuli and that a sedation medication was restarted over night for an increased heart rate as well as a medication to increase her blood pressure. Daughter stated that she has not come up because of her anxiety. The daughter talked about many topics related to her mothers health ranging from her admission at [facility] in November to care she has provided, and care from home health nurses. Stating that she has been informing other family members about her mothers progress and that she is glad we are on the same page concerning her mothers health care.
[2024-03-01 06:03] LABS: Alveolar/Arterial O2 Gradient 43.8 mmHg; Base Excess ABG -3.9 mEq/l (+/-2.0); Carboxyhemoglobin 0.2 % THb (0-2.0); Fractional Inspired Oxygen 30 %; HCO3 ABG 18.3 mEq/l (22.0-26.0); Oxygen Content ABG 15.3 %vol (16.0-22.0); Oxygen Saturation ABG 99.1 % (95.0-100.0); Oxyhemoglobin 97.3 % THb (90.0-100.0); PCO2 ABG 25.2 mmHg (35.0-45.0); PO2 ABG 148.4 mmHg (80.0-100.0); PO2 FiO2 Ratio Arterial Blood 4.95 %; Reduced Hemoglobin 2.1 %THb (0-5.0); pH ABG 7.479 (7.350-7.450)
[2024-03-01 06:04] LABS: Device VENTILATOR; Modified Allen's Test Pass; Site Drawn LEFT BRACHIAL
[2024-03-01 06:05] LABS: Arterial Blood Gas PEEP 5 cmH2O; Arterial Blood Gas Tidal Volume 320 ml; Arterial Blood Gas Vent Mode CMV; Arterial Blood Gas Ventilator rate 16 /MIN; Methemoglobin ABG 0.4 %THb (0-1.5)
[2024-03-01] MEDS: ALBUMIN HUMAN 25% 25 GM/100 ML 100 ML IVPB ×4 (07:00→17:08)
[2024-03-01] MEDS: ASPIRIN 81 MG CHEWABLE TABLET BY MOUTH (08:04)
[2024-03-01] MEDS: PANTOPRAZOLE SODIUM IV 40 MG VIAL IV PUSH ×2 (08:04→21:38)
[2024-03-01] MEDS: ATORVASTATIN 20 MG TABLET BY MOUTH (08:04)
[2024-03-01] MEDS: POTASSIUM BICARBONATE 25 MEQ TABEF 50 MEQ PO (08:06)
[2024-03-01] MEDS: KCL 40 MEQ/WATER 100 ML 100 ML 25 ML IVPB (08:06)
[2024-03-01] MEDS: CLOPIDOGREL BISULFATE 75 MG TABLET PO (08:06)
[2024-03-01] MEDS: MEROPENEM 1 GM/NS 100 ML 1 GM/100 ML BAG IVPB ×2 (08:06→21:38)
[2024-03-01] MEDS: SOD HYPOCHLORITE 1/4 STRENGTH 473 ML 1 APPLIC TOPICAL ×2 (08:07→21:40)
[2024-03-01] MEDS: MINERAL OIL/WHITE PETROLATUM OINTMENT 1 APPLIC EACH EYE ×2 (08:08→21:39)
[2024-03-01] MEDS: SODIUM BICARBONATE TAB 650 MG TABLET FEED TUBE ×3 (08:09→17:09)
[2024-03-01 08:12] LABS: Vancomycin Trough 24.3 ug/mL (10.0-20.0)
[2024-03-01 08:20] LABS: Glucose Point of Care 144 mg/dl (65-105)
--- NOTE | 2024-03-01 08:35 | WPDINTPN ---
Progress Note: A&P Assessment and Plan (1) Acute respiratory failure with hypoxia: Code(s): J96.01 - Acute respiratory failure with hypoxia Status: Acute Assessment and Plan: Acute Respiratory failure secondary to aspiration pneumonia, encephalopathy, COPD Patient now intubated and sedated Continue full mechanical ventilation support to prevent hypoxemia/hypercarbia and end organ damage. ABG and PCXR reviewed and will repeat in am. Bronchodilators CT chest Limited evaluation of subsegmental pulmonary arteries. No CT evidence of acute central or segmental pulmonary embolus. Lingular and left lower lobe bronchial wall thickening and bronchial debris may reflect bronchiolitis or aspiration. 02/[address] chest shows left-sided pneumonia mild pulmonary edema and small pleural effusions 03/01 ABG and chest x-ray reviewed. I placed patient on pressure support ventilation 03/25. Continue as tolerated. Not an extubation candidate due to mental status (2) Encephalopathy: Code(s): G93.40 - Encephalopathy, unspecified Status: Acute Assessment and Plan: Patient presented with poor mental status. Head CT unremarkable Normal ammonia and TSH UDS positive for benzodiazepine, patient also is on other medication which can have sedative effects including gabapentin, opioid New stroke is another possibility and cannot be ruled out at this time Patient is now sedated mechanical ventilation limiting exam 02/26 Versed was switched to Precedex 02/27 will perform sedation holiday and both fentanyl and Precedex have been put on hold 02/28 opens her eyes to pain. No other response. CT head IMPRESSION: 1. Old infarcts in the brain. 2. Extensive nonspecific cerebral white matter disease, which likely represents chronic small vessel ischemic disease. 02/28 EEG IMPRESSION ? Abnormal record due to the absence of normal background rhythm and due to the presence of the? asymmetrical theta activity clinical correlation recommended this tracing is suggestive of underlying organic or metabolic encephalopathy with focal insult but there is no evidence of any? paroxysmal? ? Activity. 03/01 opens eyes on sternal rub and grimaces to pain. Hold sedation. Monitor. Unable to do MRI on a ventilator patient at [facility]. If does not improve over next 24 hours will consult Neurology (3) Septic shock: Code(s): A41.9 - Sepsis, unspecified organism; R65.21 - Severe sepsis with septic shock Status: Acute Assessment and Plan: Septic shock secondary to aspiration pneumonia and sacral osteomyelitis Patient was found having vomitus on her face with CT showing Lingular and left lower lobe bronchial wall thickening and bronchial debris may reflect bronchiolitis or aspiration. Echo as below Blood cultures are growing Proteus mirabilis in 2/2 bottles Sputum cultures growing MSSA Wound cultures growing Proteus mirabilis and Enterococcus faecalis Wound was evaluated by wound care and local wound care will be done as per recommendations Continue Empiric vancomycin and meropenem, 02/28 change cefepime and Flagyl to meropenem Patient has received significant amount of IV fluids now and will hold further IV fluids Levophed titration to maintain map (4) Congestive heart failure: Code(s): I50.9 - Heart failure, unspecified Status: Acute Assessment and Plan: Patient has elevated BNP but initial CT scan did not show any pulmonary edema Patient had CABG 11 years ago. Echo Summary ? 1. Complete two-dimensional, color flow and Doppler transthoracic echocardiogram is performed. ? 2. Severe left ventricular hypertrophy with modest enlargement and global systolic dysfunction ejection fraction approximately 30%. ? 3. Grade 1 diastolic noncompliance. ? 4. Thickened, calcified papillary muscle heads, normal mitral valve leaflets and no MR. ? 5. Mildly sclerotic aortic valve with well maintained leaflet separation Hold further IV flui
[2024-03-01] MEDS: METOCLOPRAMIDE HCL 10 MG/10 ML SOLN UDC FEED TUBE ×3 (08:50→17:09)
[2024-03-01] MEDS: MORPHINE SULFATE (*CRX) 2 MG/ML INJ IV PUSH (10:15)
--- NOTE | 2024-03-01 10:45 | PCFNICU ---
ICU Rounding Note: Pt current nutrition is Vital AF 1.2 at 40 ml/hr with Benton BID. Last recorded weight is 42.2 kg, up from 38.6 kg on admit. Bowel Motility: +BM reported 02/27 Labs Reviewed:Glu 123, BUN 45, Alb 3.3,Hct 7.9,Hgb 9.7 Meds Noted:Reglan, Cefepime, Flagyl Skin: Stage III-right medial flank, right hip-Deep Tissue, Left medial-Deep Tissue Additional Notes: Patient remains on mechanical vent. Sedation remains off. Tube feedings have been stopped at this time due to elevated residuals. Plans to start Reglan today and restart tube feedings. Protein Modular remains with Benton BID for wound healing. Agree with diet orders. Following daily in ICU rounds. Monitoring orders, labs, vitals, meds, weights, plan of care and reassess Tuesdays and Fridays.
[2024-03-01] MEDS: FUROSEMIDE INJ 100 MG/10 ML VIAL 80 MG IV PUSH (11:28)
[2024-03-01 12:31] LABS: Glucose Point of Care 137 mg/dl (65-105)
[2024-03-01 16:32] LABS: Glucose Point of Care 127 mg/dl (65-105)
[2024-03-01 21:57] LABS: Glucose Point of Care 153 mg/dl (65-105)
[2024-03-02] VITALS (34 sets, daily range): BP systolic 113–153; BP diastolic 56–73; PULSE 106–127; RESP 19–33; TEMP 37.4–38.1; O2SAT 93–99
[2024-03-02] MEDS: ALBUMIN HUMAN 25% 25 GM/100 ML 100 ML IVPB ×4 (01:06→17:00)
[2024-03-02] MEDS: METOCLOPRAMIDE HCL 10 MG/10 ML SOLN UDC FEED TUBE ×4 (01:06→17:00)
[2024-03-02] MEDS: IPRATROPIUM 0.5 MG/ALBUTEROL SULFATE 2.5 MG AMPUL.NEB 3 ML INHALATION ×4 (02:58→20:11)
[2024-03-02 03:33] LABS: Glucose Point of Care 134 mg/dl (65-105)
[2024-03-02 05:30] LABS: Alveolar/Arterial O2 Gradient 144.2 mmHg; Base Excess ABG -2.7 mEq/l (+/-2.0); Carboxyhemoglobin 0.3 % THb (0-2.0); Fractional Inspired Oxygen 30 %; Methemoglobin ABG 0.5 %THb (0-1.5); Oxygen Saturation ABG 98.3 % (95.0-100.0); Oxyhemoglobin 96.3 % THb (90.0-100.0); PCO2 ABG 24.5 mmHg (35.0-45.0); PO2 ABG 102.8 mmHg (80.0-100.0); PO2 FiO2 Ratio Arterial Blood 3.43 %; Reduced Hemoglobin 2.9 %THb (0-5.0)
[2024-03-02 05:32] LABS: Device VENTILATOR; Modified Allen's Test Pass; Site Drawn RIGHT BRACHIAL; pH ABG 7.508 (7.350-7.450)
[2024-03-02 05:33] LABS: Arterial Blood Gas PEEP 5 cmH2O; Arterial Blood Gas Tidal Volume 320 ml; Arterial Blood Gas Vent Mode CMV; Arterial Blood Gas Ventilator rate 16 /MIN
[2024-03-02 05:52] LABS: Hematocrit 28.2 % (37.0-47.0); Hemoglobin 9.9 g/dL (12.0-15.0); Immature Platelet Fraction Pct 16.2 % (0.9-11.2); Mean Corpuscular HGB Conc 35.1 g/dl (32-36); Mean Corpuscular Volume 79.7 fl (80-100); Platelet Count Result 30 k/mm3 (150-375); Red Blood Count 3.54 M/mm3 (4.2-5.4); Red Cell Distribution Width 15.4 % (11.5-14.5); White Blood Count 18.6 K/mm3 (4.5-10.0)
[2024-03-02 06:02] LABS: Anion Gap 18 mmol/L (4-12); Blood Urea Nitrogen 58 mg/dL (7-17); Calcium 9.7 mg/dL (8.4-10.2); Carbon Dioxide 18 mmol/L (22-30); Chloride 108 mmol/L (98-107); Creatine Kinase 52 U/L (30-135); Estimated CRCL calculation 33 ml/min; Estimated Glomerular Filt Rate 56; Glucose 158 mg/dL (65-110); Magnesium 2.3 mg/dL (1.6-2.3); Potassium 3.9 mmol/L (3.4-5.0); Sodium 144 mmol/L (137-145)
[2024-03-02 07:30] LABS: Glucose Point of Care 189 mg/dl (65-105)
[2024-03-02] MEDS: ASPIRIN 81 MG CHEWABLE TABLET BY MOUTH (08:26)
[2024-03-02] MEDS: CLOPIDOGREL BISULFATE 75 MG TABLET PO (08:26)
[2024-03-02] MEDS: ATORVASTATIN 20 MG TABLET BY MOUTH (08:26)
[2024-03-02] MEDS: SOD HYPOCHLORITE 1/4 STRENGTH 473 ML 1 APPLIC TOPICAL ×2 (08:27→21:32)
[2024-03-02] MEDS: MINERAL OIL/WHITE PETROLATUM OINTMENT 1 APPLIC EACH EYE ×2 (08:27→21:32)
[2024-03-02] MEDS: PANTOPRAZOLE SODIUM IV 40 MG VIAL IV PUSH ×2 (08:27→21:32)
[2024-03-02] MEDS: SODIUM BICARBONATE TAB 650 MG TABLET FEED TUBE ×3 (08:27→16:59)
[2024-03-02] MEDS: MEROPENEM 1 GM/NS 100 ML 1 GM/100 ML BAG IVPB ×2 (08:27→21:38)
--- NOTE | 2024-03-02 10:46 | WPDINTPN ---
Progress Note: A&P Assessment and Plan (1) Acute respiratory failure with hypoxia: Code(s): J96.01 - Acute respiratory failure with hypoxia Status: Acute Assessment and Plan: Acute Respiratory failure secondary to aspiration pneumonia, encephalopathy, COPD Patient now intubated and sedated Continue full mechanical ventilation support to prevent hypoxemia/hypercarbia and end organ damage. ABG and PCXR reviewed and will repeat in am. Bronchodilators CT chest Limited evaluation of subsegmental pulmonary arteries. No CT evidence of acute central or segmental pulmonary embolus. Lingular and left lower lobe bronchial wall thickening and bronchial debris may reflect bronchiolitis or aspiration. 02/[address] chest shows left-sided pneumonia mild pulmonary edema and small pleural effusions 03/01 ABG and chest x-ray reviewed. I placed patient on pressure support ventilation /. Continue as tolerated. Not an extubation candidate due to mental status 03/02 patient placed on PSV /5 but low tidal volumes. PS increased to 10 new as tolerated. ABG and chest x-ray reviewed. Tidal volume decreased to 300 (2) Encephalopathy: Code(s): G93.40 - Encephalopathy, unspecified Status: Acute Assessment and Plan: Patient presented with poor mental status. Head CT unremarkable Normal ammonia and TSH UDS positive for benzodiazepine, patient also is on other medication which can have sedative effects including gabapentin, opioid New stroke is another possibility and cannot be ruled out at this time Patient is now sedated mechanical ventilation limiting exam 02/26 Versed was switched to Precedex 02/27 will perform sedation holiday and both fentanyl and Precedex have been put on hold 02/28 opens her eyes to pain. No other response. CT head IMPRESSION: 1. Old infarcts in the brain. 2. Extensive nonspecific cerebral white matter disease, which likely represents chronic small vessel ischemic disease. 02/28 EEG IMPRESSION ? Abnormal record due to the absence of normal background rhythm and due to the presence of the? asymmetrical theta activity clinical correlation recommended this tracing is suggestive of underlying organic or metabolic encephalopathy with focal insult but there is no evidence of any? paroxysmal? ? Activity. 03/01 opens eyes on sternal rub and grimaces to pain. Hold sedation. Monitor. Unable to do MRI on a ventilator patient at [facility]. If does not improve over next 24 hours will consult Neurology 03/02 patient had paced started on low-dose Precedex overnight due to tachypnea and tachycardia but off this morning. Grimaces to pain and opens eyes with no further improvement. Will consult Neurology (3) Septic shock: Code(s): A41.9 - Sepsis, unspecified organism; R65.21 - Severe sepsis with septic shock Status: Acute Assessment and Plan: Septic shock secondary to aspiration pneumonia and sacral osteomyelitis Patient was found having vomitus on her face with CT showing Lingular and left lower lobe bronchial wall thickening and bronchial debris may reflect bronchiolitis or aspiration. Echo as below Blood cultures are growing Proteus mirabilis in 2/2 bottles Sputum cultures growing MSSA Wound cultures growing Proteus mirabilis and Enterococcus faecalis Wound was evaluated by wound care and local wound care will be done as per recommendations Continue Empiric vancomycin and meropenem, 02/28 change cefepime and Flagyl to meropenem Patient has received significant amount of IV fluids now and will hold further IV fluids Levophed titration to maintain map which is currently off (4) Congestive heart failure: Code(s): I50.9 - Heart failure, unspecified Status: Acute Assessment and Plan: Patient has elevated BNP but initial CT scan did not show any pulmonary edema Patient had CABG 11 years ago. Echo Summary ? 1. Complete two-dimensional, color flow and Doppler transthoracic echocardio
--- NOTE | 2024-03-02 11:16 | PCNFU ---
Nutrition Follow-Up Complete: 1. Increased energy expenditure related to sepsis as evidenced by mechanical ventilation, need for full tube feeding 2. Severe protein calorie malnutrition related to increased needs from wounds, inadequate intake as evidenced by severe muscle wasting (temporalis, clavicles, shoulders) and severe fat loss (buccal fat pads, ribs) Goal: Meet estimated protein energy needs Patient has limited progress towards goal. We will continue current goal. Pt current nutrition is Vital AF 1.2 at 20 ml/hr. Nutrition recommendation: goal rate recommending at 50 ml/hr. Last recorded weight is 42.3 kg, up from 38.6 kg on admit. Bowel Motility: +BM reported 02/27 Labs Reviewed: Glu 158, BUN 58, Hct 28.2,Hgb 9.9 Meds Noted:Reglan, Flagyl, Cefepime Skin: Stage III-right medial flank, right hip-Deep Tissue, Left medial-Deep Tissue Additional Notes: Patient remains on mechanical vent. Tube feedings are on hold, patient continues to not tolerate. Discussion in ICU rounds today regarding Dobbhoff placement. Once tube is placed will proceed with tube feedings of Vital AF 1.2. Recommend goal rate at 50 ml/hr. Protein Modulars continue of [place] BID for wound healing. Total Nutrition at goal rate: 1360 kcal/88 gms protein/892 ml water. Flush 30 ml q 4 hours. Agree with diet orders. Monitoring orders, labs, vitals, meds, weights, plan of care Follow up daily in rounds, reassess Tuesdays and Fridays
[2024-03-02 11:25] LABS: Glucose Point of Care 195 mg/dl (65-105)
[2024-03-02] MEDS: ACETAMINOPHEN 325 MG TABLET 650 MG PO (12:30)
--- NOTE | 2024-03-02 13:27 | PM.IMPN ---
Progress Note: A&P Assessment and Plan (1) Anemia: Code(s): D64.9 - Anemia, unspecified Status: Acute (2) Oliguria: Code(s): R34 - Anuria and oliguria Status: Acute (3) Electrolyte abnormality: Code(s): E87.8 - Other disorders of electrolyte and fluid balance, not elsewhere classified Status: Acute (4) Encephalopathy: Code(s): G93.40 - Encephalopathy, unspecified Status: Acute (5) Septic shock: Code(s): A41.9 - Sepsis, unspecified organism; R65.21 - Severe sepsis with septic shock Status: Acute (6) Bacteremia: Code(s): R78.81 - Bacteremia Status: Acute Plan # septic shock # acute hypoxic respiratory failure # metabolic encephalopathy # Proteus bacteremia # wound infection with Proteus and Enterococcus # staph aureus in sputum -patient has numerous organisms found staph in sputum, Proteus in blood, wound cultures Proteus and Enterococcus -antibiotics: Meropenem, daptomycin -with acidemia on sodium bicarb -vasopressors: Levophed, available - IMV: ACVC, 30% FiO2 -sedation presents held -continue nebs q.6 hours p.r.n. wheezing -brain MRI with brain stem today to follow-up encephalopathy -EEG was nonspecific -neurology consult # chronic conditions -hyperlipidemia: Aspirin, Plavix, Lipitor -COPD Diet: Tube feeds DVT prophylaxis: Unable to use chemoprophylaxis with anemia, no legs for SCDs GI prophylaxis: Protonix Code status: Full code Disposition: Continue ICU management, poor prognosis Subjective Date/time seen: 03/02/24 13:27 Interval history: Patient seen examined. Discussed case with sybase developer. Plan for brain MRI today, neurology to follow up. Despite holding sedation she is not responsive. Poor clinical prognosis. Feeding tube was replaced today. Review of Systems Review of Systems: Unable to obtain patient intubated Exam Narrative: - GENERAL: Chronically ill-appearing woman on ventilator - EYES: EOMI. Anicteric. - HENT: Moist mucous membranes. - LUNGS: Coarse lung sounds - CARDIOVASCULAR: Tachycardic and regular rhythm. - ABDOMEN: Soft, nondistended - : barraza - EXTREMITIES: Bilateral AKA - NEUROLOGIC: Intubated - PSYCHIATRIC: Unable to assess - SKIN: No rashes or lesions. Warm. Objective Data Vital Signs Vital Signs: Vital Signs - 24 hr 03/01/24 13:33 03/01/24 13:34 03/01/24 13:43 Temperature Pulse Rate 96 95 97 Respiratory Rate 26 H 26 H Blood Pressure Pulse Oximetry 98 Oxygen Delivery Mechanical Ventilation Fraction of Inspired Oxygen 30 03/01/24 14:00 03/01/24 14:00 03/01/24 16:00 Temperature 36.8 C Pulse Rate 101 H 101 H 105 H Respiratory Rate 28 H Blood Pressure 111/59 L Pulse Oximetry 99 Oxygen Delivery Fraction of Inspired Oxygen 03/01/24 16:00 03/01/24 16:00 03/01/24 16:00 Temperature 36.9 C Pulse Rate 105 H 105 H Respiratory Rate 25 H 25 H Blood Pressure 114/60 Pulse Oximetry 98 98 Oxygen Delivery Mechanical Ventilation Fraction of Inspired Oxygen 30 30 03/01/24 17:13 03/01/24 18:00 03/01/24 18:00 Temperature 37.2 C Pulse Rate 110 H 113 H 113 H Respiratory Rate 28 H Blood Pressure 115/58 L Pulse Oximetry 98 98 Oxygen Delivery Mechanical Ventilation Fraction of Inspired Oxygen 30 03/01/24 19:57 03/01/24 19:57 03/01/24 20:05 Temperature Pulse Rate 120 H 120 H 119 H Respiratory Rate 35 H 24 H Blood Pressure Pulse Oximetry 98 Oxygen Delivery Mechanical Ventilation Fraction of Inspired Oxygen 30 03/01/24 21:49 03/01/24 20:00 03/01/24 20:00 Temperature 37.7 C H Pulse Rate 129 H 121 H 121 H Respiratory Rate 35 H 34 H Blood Pressure 122/61 Pulse Oximetry 98 Oxygen Delivery Fraction of Inspired Oxygen 03/01/24 20:00 03/01/24 20:00 03/01/24 22:00 Temperature 37.7 C H Pulse Rate 121 H 126 H Respiratory Rate 34 H 34 H Blood Pressure 131/72 Pulse Oxi
[2024-03-02] MEDS: MORPHINE SULFATE (*CRX) 2 MG/ML INJ IV PUSH (14:12)
[2024-03-02 18:15] LABS: Glucose Point of Care 146 mg/dl (65-105)
[2024-03-02 21:26] LABS: Glucose Point of Care 157 mg/dl (65-105)
[2024-03-03] VITALS (27 sets, daily range): BP systolic 129–153; BP diastolic 62–75; PULSE 124–137; RESP 24–30; TEMP 37.2–38.6; O2SAT 95–99
[2024-03-03] MEDS: ALBUMIN HUMAN 25% 25 GM/100 ML 100 ML IVPB ×4 (00:10→17:24)
[2024-03-03] MEDS: METOCLOPRAMIDE HCL 10 MG/10 ML SOLN UDC FEED TUBE ×4 (00:10→17:24)
[2024-03-03 01:01] LABS: Glucose Point of Care 186 mg/dl (65-105)
[2024-03-03] MEDS: IPRATROPIUM 0.5 MG/ALBUTEROL SULFATE 2.5 MG AMPUL.NEB 3 ML INHALATION ×3 (02:20→14:14)
[2024-03-03 05:24] LABS: Base Excess ABG -1.7 mEq/l (+/-2.0); Carboxyhemoglobin 0.2 % THb (0-2.0); Fractional Inspired Oxygen 30 %; HCO3 ABG 19.9 mEq/l (22.0-26.0); Methemoglobin ABG 0.4 %THb (0-1.5); Oxygen Content ABG 15.2 %vol (16.0-22.0); Oxygen Saturation ABG 97.2 % (95.0-100.0); Oxyhemoglobin 95.3 % THb (90.0-100.0); PCO2 ABG 25.1 mmHg (35.0-45.0); PO2 ABG 82.4 mmHg (80.0-100.0); PO2 FiO2 Ratio Arterial Blood 2.75 %; Reduced Hemoglobin 4.1 %THb (0-5.0); Total Hemoglobin 11.3 g/dL (12.0-18.0)
[2024-03-03 05:25] LABS: Device VENTILATOR; Site Drawn RIGHT BRACHIAL; pH ABG 7.518 (7.350-7.450)
[2024-03-03 05:26] LABS: Arterial Blood Gas PEEP 5 cmH2O; Arterial Blood Gas Tidal Volume 300 ml; Arterial Blood Gas Vent Mode CMV; Arterial Blood Gas Ventilator rate 16 /MIN
[2024-03-03 05:39] LABS: Alanine Aminotransferase 17 U/L (6-35); Albumin Level 4.4 g/dL (3.5-5.1); Alkaline Phosphatase 330 U/L (38-126); Anion Gap 13 mmol/L (4-12); Aspartate Amino Transferase 114 U/L (14-36); Bilirubin,Total 5.1 mg/dL (0.2-1.3); Blood Urea Nitrogen 77 mg/dL (7-17); Calcium 9.7 mg/dL (8.4-10.2); Carbon Dioxide 23 mmol/L (22-30); Chloride 106 mmol/L (98-107); Creatine Kinase 68 U/L (30-135); Estimated CRCL calculation 26 ml/min; Estimated Glomerular Filt Rate 41; Glucose 192 mg/dL (65-110); Magnesium 2.3 mg/dL (1.6-2.3); Potassium 3.9 mmol/L (3.4-5.0); Sodium 142 mmol/L (137-145)
[2024-03-03 05:57] LABS: Hematocrit 29.3 % (37.0-47.0); Hemoglobin 10.4 g/dL (12.0-15.0); Immature Platelet Fraction Pct 19.6 % (0.9-11.2); Mean Corpuscular HGB Conc 35.5 g/dl (32-36); Platelet Count Result 37 k/mm3 (150-375); Red Blood Count 3.71 M/mm3 (4.2-5.4); White Blood Count 19.8 K/mm3 (4.5-10.0)
[2024-03-03 07:43] LABS: Glucose Point of Care 173 mg/dl (65-105)
--- NOTE | 2024-03-03 08:58 | WPDINTPN ---
Progress Note: A&P Assessment and Plan (1) Acute respiratory failure with hypoxia: Code(s): J96.01 - Acute respiratory failure with hypoxia Status: Acute Assessment and Plan: Acute Respiratory failure secondary to aspiration pneumonia, encephalopathy, COPD Patient now intubated and sedated Continue full mechanical ventilation support to prevent hypoxemia/hypercarbia and end organ damage. ABG and PCXR reviewed and will repeat in am. Bronchodilators CT chest Limited evaluation of subsegmental pulmonary arteries. No CT evidence of acute central or segmental pulmonary embolus. Lingular and left lower lobe bronchial wall thickening and bronchial debris may reflect bronchiolitis or aspiration. 02/[address] chest shows left-sided pneumonia mild pulmonary edema and small pleural effusions 03/01 ABG and chest x-ray reviewed. I placed patient on pressure support ventilation /. Continue as tolerated. Not an extubation candidate due to mental status 03/02 patient placed on PSV /5 but low tidal volumes. PS increased to 10 new as tolerated. ABG and chest x-ray reviewed. Tidal volume decreased to 300 (2) Encephalopathy: Code(s): G93.40 - Encephalopathy, unspecified Status: Acute Assessment and Plan: Patient presented with poor mental status. Head CT unremarkable Normal ammonia and TSH UDS positive for benzodiazepine, patient also is on other medication which can have sedative effects including gabapentin, opioid New stroke is another possibility and cannot be ruled out at this time Patient is now sedated mechanical ventilation limiting exam 02/26 Versed was switched to Precedex 02/27 will perform sedation holiday and both fentanyl and Precedex have been put on hold 02/28 opens her eyes to pain. No other response. CT head IMPRESSION: 1. Old infarcts in the brain. 2. Extensive nonspecific cerebral white matter disease, which likely represents chronic small vessel ischemic disease. 02/28 EEG IMPRESSION ? Abnormal record due to the absence of normal background rhythm and due to the presence of the? asymmetrical theta activity clinical correlation recommended this tracing is suggestive of underlying organic or metabolic encephalopathy with focal insult but there is no evidence of any? paroxysmal? ? Activity. 03/01 opens eyes on sternal rub and grimaces to pain. Hold sedation. Monitor. Unable to do MRI on a ventilator patient at [facility]. If does not improve over next 24 hours will consult Neurology 03/02 patient had paced started on low-dose Precedex overnight due to tachypnea and tachycardia but off this morning. Grimaces to pain and opens eyes with no further improvement. Will consult Neurology 03/03 no significant improvement in mental status. Patient has some movement in her hands for on painful stimuli. Unable to perform MRI at [facility] on a ventilated patient. Although it will likely not change the management it may provide more information, Neurology has not seen the patient yet. Will discuss with family regarding sending patient flu for MRI of potential transfer for MRI and ID consult (3) Septic shock: Code(s): A41.9 - Sepsis, unspecified organism; R65.21 - Severe sepsis with septic shock Status: Acute Assessment and Plan: Septic shock secondary to aspiration pneumonia and sacral osteomyelitis Patient was found having vomitus on her face with CT showing Lingular and left lower lobe bronchial wall thickening and bronchial debris may reflect bronchiolitis or aspiration. Echo as below Blood cultures are growing Proteus mirabilis in 2/2 bottles Sputum cultures growing MSSA Wound cultures growing Proteus mirabilis and Enterococcus faecalis Wound was evaluated by wound care and local wound care will be done as per recommendations Patient was initially started on Empiric vancomycin and meropenem, 02/28 change cefepime and Flagyl to meropenem 03/01 vancomycin was switched to daptomycin t
[2024-03-03 09:01] LABS: Phosphorus < 1.0 mg/dL (2.5-4.5)
[2024-03-03] MEDS: LACTATED RINGERS 500 ML 999 ML IV CONT (09:04)
[2024-03-03] MEDS: CLOPIDOGREL BISULFATE 75 MG TABLET PO (09:08)
[2024-03-03] MEDS: SODIUM BICARBONATE TAB 650 MG TABLET FEED TUBE ×3 (09:08→17:25)
[2024-03-03] MEDS: PANTOPRAZOLE SODIUM IV 40 MG VIAL IV PUSH (09:08)
[2024-03-03] MEDS: ATORVASTATIN 20 MG TABLET BY MOUTH (09:08)
[2024-03-03] MEDS: ASPIRIN 81 MG CHEWABLE TABLET BY MOUTH (09:09)
[2024-03-03] MEDS: MINERAL OIL/WHITE PETROLATUM OINTMENT 1 APPLIC EACH EYE (09:09)
[2024-03-03] MEDS: LACTATED RINGERS 1,000 ML 50 ML IV CONT (09:46)
[2024-03-03] MEDS: POTASSIUM/PHOSPHORUS/SODIUM 1.5 GM PACKET 1 PACKET PO (09:53)
[2024-03-03] MEDS: DEXTROSE IVPB (09:53)
[2024-03-03] MEDS: WATER IVPB (09:53)
[2024-03-03] MEDS: SODIUM PHOSPHATE IVPB (09:53)
[2024-03-03] MEDS: MEROPENEM 1 GM/NS 100 ML 1 GM/100 ML BAG IVPB (09:53)
--- NOTE | 2024-03-03 10:27 | WPDNEURCNPN ---
Assessment and Plan Assessment and plan (1) Encephalopathy: Code(s): G93.40 - Encephalopathy, unspecified Status: Acute (2) Septic shock: Code(s): A41.9 - Sepsis, unspecified organism; R65.21 - Severe sepsis with septic shock Status: Acute (3) Acute respiratory failure with hypoxia: Code(s): J96.01 - Acute respiratory failure with hypoxia Status: Acute (4) History of stroke: Code(s): Z86.73 - Personal history of transient ischemic attack (TIA), and cerebral infarction without residual deficits Status: Acute Plan Sofia Herrera is a 63 year old female with a history of CAD, chronic smoking, PAD, COPD, CHF, TIA, DM, sacral decubitus ulcer who presented due to altered mental status. She was found minimally responsive with labored breathing. Course has been complicated by sepsis secondary to aspiration pneumonia and sacral osteomyelitis. Mental status has not improved despite broad spectrum antibiotics and holding sedation . It's certainly possible that patient had a stroke, especially with her underlying risk factors. EEG showed lateralizing features which may be suggestive of a focal insult (although this could be related to the old strokes as well). Could also be more global hypoxic injury -- it's unclear how long patient was unresponsive. CT head has been repeated but did not show any subacute changes. Unfortunately MRI brain cannot be done here at [facility] due to patient being ventilated. I think it is reasonable to transfer for more detailed imaging given the above concerns. LP would only be helpful to rule out treatable viral encephalitis (HSV), as she has already been treated with broad spectrum antibiotics, so that is a consideration as well. Consult date: 03/03/24 Reason for consult: Encephalopathy HPI: Sofia Herrera is a 63 year old female with a history of CAD, chronic smoking, PAD, COPD, CHF, TIA, DM, sacral decubitus ulcer who presented due to altered mental status. Patient was treated for sacral decubitus ulcer in November 2023. After discharge she was living with her daughter. On February 26, 2024, daughter found patient minimally responsive, and she was noted to have vomitus on her chin, labored breathing. She was taken to [facility] where she was intubated. She was febrile, starting on IV antibiotics and vasopressors. She was admitted to the ICU. UDS was positive for benzodiazepines. Ammonia, TSH were normal. Since admission she has been receiving broad spectrum antibiotics for treatment of sacral osteomyelitis and aspiration pneumonia. CT head on presentation did not show any acute changes. There were concerns for persistent encephalopathy despite holding sedation and treatment of infection, so CT head was repeated on 02/28 which did not show any acute or subacute changes, but she does have old infarcts. Routine EEG was done as well which Dr. Lord read as abnormal due to asymmetric slowing of background, but no electrographic seizures or epileptiform features. . Review of Systems Review of Systems: ROS unobtainable: Yes unobtainable due to endotracheal tube, unobtainable due to medical condition and unobtainable due to mental status PMFSH Past Medical History Medical History Arthritis Chronic obstructive pulmonary disease Congestive heart failure Coronary artery disease Deep venous thrombosis Diverticulitis Hiatal hernia Hypertension Kidney stones Myocardial infarction Peripheral vascular disease Pneumonia Pulmonary embolism Tobacco dependence Transient ischemic attack Type 2 diabetes mellitus Surgical History Surgical History History of above-knee amputation of both lower extremities History of cardiac catheterization History of section History of coronary artery bypass graft History of coronary artery stent placement History of inferior vena caval filte
[2024-03-03] MEDS: SOD HYPOCHLORITE 1/4 STRENGTH 473 ML 1 APPLIC TOPICAL (10:58)
[2024-03-03 11:39] LABS: Glucose Point of Care 197 mg/dl (65-105)
--- NOTE | 2024-03-03 11:47 | PC.NURSE ---
Gogo from [facility] called to get vitals, IVs, and vent settings. Will called back when a bed is available.
--- NOTE | 2024-03-03 12:31 | P.PNCROSS_ITS ---
Event Note Event Note Event Note: Patient was admitted at [facility] in November where she had r eceived treatment for her decubitus wound and osteomyelitis. She was discharged with wound VAC and IV antibiotics. This time at the time of admission in the ER ER physician spoke to patient's daughter and recommended the patient be transferred back to [facility] for continued management patient's daughter refused at that time. Patient now would benefit from ID consultation due to multiple different bacterial cultures and infection and also needs an MRI for further evaluation of her altered mental status and lack of improvement. This was discussed again with patient's daughter by phone today along with option of transferring patient back to [facility]. She agreed for transfer and verbalized understanding of risks and benefits of transfer to [facility]. I discussed the case with Dr. Malloy who is the transfusion aide at [facility]. He has accepted the patient and patient will be transferred once bed is available.
[2024-03-03 16:43] LABS: Glucose Point of Care 205 mg/dl (65-105)
[2024-03-03] MEDS: INSULIN ASPART (*BKC) 100 UNITS/ML SUB-Q (17:22)
[2024-03-03] MEDS: ACETAMINOPHEN 325 MG TABLET 650 MG PO (17:25)
--- NOTE | 2024-03-03 19:13 | PC.NURSE ---
Patient left with mobile EMS. ET, Dobhof, OG, Zepeda and triple lumen all intact. Daughter ,Britany and [facility] notified of transfer.
--- NOTE | 2024-03-04 15:06 | PM.TDS ---
Transfer Discharge Sum: Prov Provider Date of admission: 02/26/24 19:05 Primary care physician: Kita Morris, MD Admitting clinician: Matthew Atkinson MD Attending physician on admission: Kinjal Vee Consults: 02/26/24 Consult to Physician Routine Comment: left voicemail with the office @[id number](ER,US) Consulting Provider: Ne Zaragoza fisher scallop/MD group to consult: surgery Reason for consultation: sacral ulcer with osteomyelitis Has provider been notified: Yes Wound/ET Consult Routine Reason for Consult:: Large sacral decubitus ulcer 02/26/24 18:31 Consult to Physician Routine Comment: Consulting Provider: Michael Sinclair Reason for consultation: ICU admission Has provider been notified: Yes 03/02/24 Consult to Physician Routine Comment: spoke with Dr. Cabrera @[id number](ER,US) Consulting Provider: Phoebe Cabrera fisher scallop/MD group to consult: Neurology Reason for consultation: Altered mental status Has provider been notified: Yes Attending physician on discharge: Kinjal Vee Discharging clinician: Kinjal Vee Anticipated date of transfer: 03/03/24 DS: Admitting Diagnosis Discharge Date 03/03/24 Admitting Diagnosis Altered mental status DS: Discharge Diagnosis Discharge Diagnosis (1) Acute respiratory failure with hypoxia: Code(s): J96.01 - Acute respiratory failure with hypoxia Status: Acute (2) Altered mental status: Code(s): R41.82 - Altered mental status, unspecified Status: Acute Transfer Discharge Sum: Med Medications Active and Home Medications: Home Medications albuterol sulfate 90 mcg/actuation aerosol inhaler (ProAir HFA) 2 puff inhalation QID 11/19/19 [History Confirmed 02/26/24] aspirin 81 mg chewable tablet 81 mg DAILY 11/19/19 [History Confirmed 02/26/24] atorvastatin 20 mg tablet 20 mg DAILY 11/19/19 [History Confirmed 02/26/24] clopidogrel 75 mg tablet 75 mg PO DAILY 11/19/19 [History Confirmed 02/26/24] glipizide 5 mg tablet 5 mg BID 11/19/19 [History Confirmed 02/26/24] gabapentin 300 mg tablet 300 mg PO TID 05/15/21 [History Confirmed 02/26/24] metformin 500 mg tablet 500 mg PO BID 05/15/21 [History Confirmed 02/26/24] oxycodone 10 mg tablet 10 mg PO TID PRN Pain 05/15/21 [History Confirmed 02/26/24] zolpidem 5 mg tablet 10 mg PO HS PRN Sedation 05/15/21 [History Confirmed 02/26/24] fluconazole 200 mg tablet 200 mg PO DAILY 02/26/24 [History Confirmed 02/26/24] paroxetine HCl 20 mg tablet 20 mg PO DAILY 02/26/24 [History Confirmed 02/26/24] sacubitril 24 mg-valsartan 26 mg tablet (Entresto) 24 - 26 tablet PO BID 02/26/24 [History Confirmed 02/26/24] Transfer Discharge Sum: Hosp Hospital Course Hospital course: Sofia Herrera is a 63 year old female with a history of CAD status post CABG, chronic and active tobacco abuse, PE, COPD, CHF, TIA, diabetes mellitus, sacral decubitus ulcer presenting with altered mental status. She was found minimally responsive with labored breathing. She was admitted on February 26 and intubated for acute hypoxic respiratory failure due to encephalopathy, COPD, pneumonia. Presentation also complicated by sepsis and sacral osteomyelitis. Despite antibiotic administration and sedation holidays the patient continued to be unresponsive, only opening her eyes to painful stimuli. Unfortunately unable to perform MRI in an intubated patient and with the help of a Neurology consultation patient is transferred on March 03, 2024 to [facility] along with the need for ID consultation. Further details is described in neurology and systems support officer consultations. The patient was full code during her admission. At the time of transfer she was in critical but stable condition. Time Spent with Patient Time attestation: Total time spent providing and/or coordinating transfer services: Exam Const: Other: Intubated and mechanically ventilated Eyes: Pupils: Equal, round and reactive pup
== END 2024-03-03 19:09 | disposition short-term general hospital (02) | DRG 870 ==
LOC: ANHED 14:23 → ANHICU 18:52
PROVIDERS: Internal Medicine; Physician Assistant; Admitting Provider Internal Medicine; Emergency Provider Emergency Medicine; PCP Family Medicine; Visit Provider General Practice
DX: A41.9 Sepsis, unspecified organism (principal); L89.113 Pressure ulcer of right upper back, stage 3; R65.21 Severe sepsis with septic shock; J18.9 Pneumonia, unspecified organism; J96.01 Acute respiratory failure with hypoxia; L89.154 Pressure ulcer of sacral region, stage 4; J69.0 Pneumonitis due to inhalation of food and vomit; G93.41 Metabolic encephalopathy; I50.23 Acute on chronic systolic (congestive) heart failure; J44.0 Chronic obstructive pulmonary disease with (acute) lower respiratory infection; M46.28 Osteomyelitis of vertebra, sacral and sacrococcygeal region; R64 Cachexia; Z68.1 Body mass index [BMI] 19.9 or less, adult; I25.10 Atherosclerotic heart disease of native coronary artery without angina pectoris; F17.210 Nicotine dependence, cigarettes, uncomplicated; B96.4 Proteus (mirabilis) (morganii) as the cause of diseases classified elsewhere; B95.2 Enterococcus as the cause of diseases classified elsewhere; E11.9 Type 2 diabetes mellitus without complications; Z20.822 Contact with and (suspected) exposure to COVID-19; I11.0 Hypertensive heart disease with heart failure; B95.61 Methicillin susceptible Staphylococcus aureus infection as the cause of diseases classified elsewhere; K44.9 Diaphragmatic hernia without obstruction or gangrene; K29.70 Gastritis, unspecified, without bleeding; L89.126 Pressure-induced deep tissue damage of left upper back; I73.9 Peripheral vascular disease, unspecified; E87.6 Hypokalemia; M19.90 Unspecified osteoarthritis, unspecified site; R34 Anuria and oliguria; E78.5 Hyperlipidemia, unspecified; Z86.711 Personal history of pulmonary embolism; D64.9 Anemia, unspecified; Z95.1 Presence of aortocoronary bypass graft; Z86.73 Personal history of transient ischemic attack (TIA), and cerebral infarction without residual deficits; I25.2 Old myocardial infarction; Z86.718 Personal history of other venous thrombosis and embolism; Z89.612 Acquired absence of left leg above knee; Z89.611 Acquired absence of right leg above knee; Z95.5 Presence of coronary angioplasty implant and graft; Z79.82 Long term (current) use of aspirin; Z79.84 Long term (current) use of oral hypoglycemic drugs
CPT/HCPCS: 31500; 36415; 36430; 36556; 36600; 43752; 70450; 71045; 71250; 71275; 74176; 74177; 80048; 80053; 80202; 80307; 81001; 82140; 82375; 82550; 82805; 82948; 83036; 83050; 83605; 83735; 83880; 84100; 84132; 84134; 84443; 85025; 85027; 85055; 85610; 85730; 86850; 86900; 86901; 86923; 87040; 87070; 87077; 87181; 87186; 87205; 87637; 87641; 93005; 93306; 94002; 94003; 94640; 95816; 96361; 96365; 96367; 96375; 99291; A9270; C1751; C9113; G0378; J0330; J0692; J0878; J1650; J1815; J1836; J1940; J2185; J2250; J2270; J3010; J3370; J3475; J3480; J7030; J7050; J7060; J7120; P9016; P9045; P9047; Q9967